=== PATIENT | male | born 1950 | race Caucasian/White ===

== ENCOUNTER → 2017-10-09 06:59 | Outpatient (CLI) | payer OTHER, MEDICAID, SELFPAY ==
[2017-10-09 09:03] LABS: Add Manual Diff / Slide Review NO; Basophils Percent Auto 1.2 % (0-2); Eosinophils Percent Auto 3.4 % (2-4); Hematocrit 38.2 % (41-53); Hemoglobin 13.1 g/dL (13.5-17.5); Lymphocytes Percent Auto 21.3 % (25-40); Mean Corpuscular HGB Conc 34.2 % (30-36); Mean Corpuscular Hemoglobin 31.1 PG (26-34); Mean Corpuscular Volume 90.9 fL (80-100); Monocytes Percent Auto 8.2 % (3-14); Neutrophils Absolute Auto 4900 /uL (3000-5900); Neutrophils Percent Auto 65.9 % (50-75); Platelet Count 349 X10^3/uL (150-400); Red Blood Cell Count 4.21 X10^6/uL (4.5-5.9); Red Cell Distribution Width 13.1 % (11.6-14.8); White Blood Cell Count 7.5 X10^3/uL (4.5-11.0)
[2017-10-09 10:35] LABS: Alanine Aminotransferase 60 IU/L (21-72); Albumin 4.2 g/dL (3.5-5.0); Albumin Globulin Ratio 1.4 (1.0-2.8); Alkaline Phosphatase 86 U/L (38-126); Aspartate Aminotransferase 58 IU/L (17-59); BUN Creatinine Ratio 18.6 (6-22); Bilirubin Total 0.9 mg/dL (0.2-1.3); Blood Urea Nitrogen 13 mg/dL (9-20); Calcium 9.4 mg/dL (8.4-10.2); Carbon Dioxide 32 mmol/L (22-32); Chloride 104 mmol/L (98-107); Cholesterol 142 mg/dL (140-199); Estimated Glomerular Filt Rate > 60.0 mL/min (>60); HDL Cholesterol 46 mg/dL (40-60); HEMOLYSIS < 15 (0-50); LDL Cholesterol Calculated 76 mg/dL (<100); Potassium 4.5 mmol/L (3.4-5.1); Sodium 143 mmol/L (137-145); Total Protein 7.2 g/dL (6.3-8.2); Triglycerides 98 mg/dL (35-150)
[2017-10-09 10:43] LABS: Hemoglobin A1C% w Est Avg Glu 8.6 % (4.0-6.0)
[2017-10-09 11:13] LABS: Glucose 40 mg/dL (80-110)
== END ==
PROVIDERS: PCP Internal Medicine; Visit Provider Internal Medicine
DX: E78.5 Hyperlipidemia, unspecified (principal); E10.9 Type 1 diabetes mellitus without complications
CPT/HCPCS: 36415; 80053; 80061; 83036; 85025

== ENCOUNTER → 2018-02-03 07:03 | Outpatient (CLI) | payer OTHER, SELFPAY ==
[2018-02-03 07:32] LABS: Add Manual Diff / Slide Review NO; Eosinophils Percent Auto 1.3 % (2-4); Hematocrit 36.5 % (41-53); Hemoglobin 12.5 g/dL (13.5-17.5); Lymphocytes Percent Auto 15.8 % (25-40); Mean Corpuscular HGB Conc 34.2 % (30-36); Mean Corpuscular Hemoglobin 32.8 PG (26-34); Neutrophils Absolute Auto 5400 /uL (3000-5900); Neutrophils Percent Auto 74.9 % (50-75); Platelet Count 303 X10^3/uL (150-400); Red Cell Distribution Width 15.6 % (11.6-14.8); White Blood Cell Count 7.2 X10^3/uL (4.5-11.0)
[2018-02-03 07:46] LABS: Hemoglobin A1C% w Est Avg Glu 8.1 % (4.0-6.0)
[2018-02-03 07:47] LABS: Alanine Aminotransferase 61 IU/L (21-72); Albumin 4.1 g/dL (3.5-5.0); Albumin Globulin Ratio 1.5 (1.0-2.8); Alkaline Phosphatase 78 U/L (38-126); Aspartate Aminotransferase 58 IU/L (17-59); BUN Creatinine Ratio 33.3 (6-22); Bilirubin Total 0.6 mg/dL (0.2-1.3); Blood Urea Nitrogen 20 mg/dL (9-20); Calcium 8.9 mg/dL (8.4-10.2); Carbon Dioxide 16 mmol/L (22-32); Chloride 106 mmol/L (98-107); Cholesterol 178 mg/dL (140-199); Estimated Glomerular Filt Rate > 60.0 mL/min (>60); Globulin 2.7 g/dL (1.7-4.1); Glucose 96 mg/dL (80-110); HDL Cholesterol 41 mg/dL (40-60); HEMOLYSIS < 15 (0-50); Potassium 4.2 mmol/L (3.4-5.1); Sodium 141 mmol/L (137-145); Total Protein 6.8 g/dL (6.3-8.2)
[2018-02-03 08:03] LABS: Triglycerides 657 mg/dL (35-150)
== END ==
PROVIDERS: Visit Provider Registered Nurse
DX: E78.5 Hyperlipidemia, unspecified (principal); E10.9 Type 1 diabetes mellitus without complications
CPT/HCPCS: 36415; 80053; 80061; 83036; 85025

== ENCOUNTER → 2018-02-06 09:06 | Outpatient (CLI) | payer OTHER, SELFPAY ==
[2018-02-06 11:27] LABS: HEMOLYSIS < 15 (0-50); Iron 60 ug/dL (49-181)
[2018-02-06 11:37] LABS: Percent Iron Saturation 23 % (20-50); Total Iron Binding Capacity 259 ug/dL (261-462); Transferrin 208 mg/dL (206-381)
[2018-02-06 12:36] LABS: Ferritin 90.3 ng/mL (17.9-464)
[2018-02-06 13:06] LABS: Folate 17.5 ng/mL (2.76-20.0); Vitamin B12 478 pg/mL (239-931)
== END ==
PROVIDERS: PCP Registered Nurse; Visit Provider Registered Nurse
DX: D64.9 Anemia, unspecified (principal)
CPT/HCPCS: 36415; 82607; 82728; 82746; 83540; 83550

== ENCOUNTER → 2018-06-13 07:03 | Outpatient (CLI) | payer OTHER, SELFPAY ==
[2018-06-13 08:22] LABS: Add Manual Diff / Slide Review NO; Basophils Absolute Auto 100 /uL (0-100); Basophils Percent Auto 0.8 % (0-2); Eosinophils Absolute Auto 0 /uL (0-450); Eosinophils Percent Auto 0.5 % (2-4); Hematocrit 35.7 % (41-53); Hemoglobin 11.9 g/dL (13.5-17.5); Lymphocytes Absolute Auto 1500 /uL (1100-4500); Lymphocytes Percent Auto 19.3 % (25-40); Mean Corpuscular HGB Conc 33.3 % (30-36); Mean Corpuscular Hemoglobin 31.9 PG (26-34); Mean Corpuscular Volume 95.9 fL (80-100); Monocytes Absolute Auto 500 /uL (0-900); Monocytes Percent Auto 6.8 % (3-14); Neutrophils Absolute Auto 5800 /uL (1500-7000); Neutrophils Percent Auto 72.6 % (50-75); Platelet Count 380 X10^3/uL (150-400); Red Blood Cell Count 3.72 X10^6/uL (4.5-5.9); Red Cell Distribution Width 13.1 % (11.6-14.8); White Blood Cell Count 7.9 X10^3/uL (4.5-11.0)
[2018-06-13 08:33] LABS: Reticulocyte Count, Percent 1.3 % (0.87-2.60)
[2018-06-13 08:46] LABS: Erythrocyte Sedimentation Rate 24 MM/HR (0-15)
[2018-06-13 08:47] LABS: Hemoglobin A1C% w Est Avg Glu 10.6 % (4.0-6.0)
[2018-06-13 09:10] LABS: Creatinine Urine Random 35.2 mg/dL
[2018-06-13 09:15] LABS: Triglycerides 144 mg/dL (35-150)
[2018-06-13 09:16] LABS: Microalbumin Urine Random 0.6 mg/dL (0-1.6)
[2018-06-13 09:17] LABS: C-Reactive Protein Quant < 0.5 mg/dL (<1.0)
[2018-06-13 09:39] LABS: Prostate Specific Antigen Scrn 0.943 ng/mL (0.1-4.0)
[2018-06-13 09:43] LABS: TSH w/ Reflex to FT4 1.98 uIU/mL (0.47-4.68)
== END ==
PROVIDERS: PCP Student in an Organized Health Care Education/Training Program; Visit Provider Student in an Organized Health Care Education/Training Program
DX: E11.9 Type 2 diabetes mellitus without complications (principal); E78.5 Hyperlipidemia, unspecified; I10 Essential (primary) hypertension; D64.9 Anemia, unspecified; E78.1 Pure hyperglyceridemia; E55.9 Vitamin D deficiency, unspecified; Z12.5 Encounter for screening for malignant neoplasm of prostate
CPT/HCPCS: 36415; 82043; 82306; 82570; 83036; 84443; 84478; 85025; 85045; 85651; 86140; G0103

== ENCOUNTER 2018-07-21 07:03 | Day surgery (SDC) | payer OTHER, SELFPAY ==
[2018-07-21] VITALS (7 sets, daily range): BP systolic 90–117; BP diastolic 42–59; PULSE 53–87; RESP 8–15; TEMP 36.1–36.7; O2SAT 95–99; BMI 20.2
--- NOTE | 2018-07-21 07:34 | PM.HP.1 ---
History of Present Illness Date Patient Seen: 07/21/18 Time Patient Seen: 07:35 Chief complaint: [id number] Narrative: 67yo M for first low risk screening colonoscopy. No family history of CRC or other high risks cancers. No blood in stools, change in stool caliber, abd pain, or unexplained weight loss. He has lost about 40 lbs over the last several months to a year intentionally by cutting out beer and carbs. Patient History Medical History Diabetes mellitus (Chronic 1978) Myasthenia gravis (Chronic 1976) Surgical History Anesthesia (Resolved) History of thymectomy (Resolved 02/01/77) Family History (Updated 10/10/17 @ 11:38 by Susanne Sanders) Father Parkinson's disease Alzheimer's disease Mother No problems noted. Social History Smoking Status: Former smoker alcohol intake: current (one night a week 4 beers) substance use type: marijuana Family & Social History Family History Father Parkinson's disease Alzheimer's disease Mother No problems noted. Tobacco & Substance use: Smoking Status Former smoker alcohol intake current Meds Home Medications Medication Instructions Recorded Confirmed Type Glucose: Test Strips str NA BID #200 04/09/17 06/19/18 Rx Lancets ea NA BID #200 04/15/17 06/19/18 Rx atorvastatin 40 mg tablet 40 mg PO DAILY #90 tab 10/03/17 06/19/18 Rx BD UF short 1/2 cc 31 g See Rx Instructions SUBCUT BID 02/06/18 06/19/18 History amlodipine 10 mg tablet 10 mg PO BEDTIME #90 tab 02/06/18 06/19/18 Rx empagliflozin 25 mg tablet 25 mg PO DAILY #90 tab 02/06/18 06/19/18 Rx metformin 500 mg tablet 1,000 mg PO BID #360 tab 02/06/18 06/19/18 Rx aspirin 81 mg tablet,delayed 81 mg PO DAILY 05/28/18 06/19/18 History release lisinopril 20 mg tablet 20 mg PO DAILY #90 tab 05/28/18 06/19/18 Rx blood sugar diagnostic strips #200 each 06/18/18 06/19/18 Rx glipizide ER 10 mg tablet, 10 mg PO DAILY #30 tab 06/19/18 Rx extended release 24 hr insulin glargine (U-100) 100 15 unit SUBCUT .HS #15 ml 06/19/18 Rx unit/mL (3 mL) subcutaneous pen Allergies Allergy/AdvReac Type Severity Reaction Status Date / Time chlorthalidone AdvReac Mild weakness Verified 06/19/18 15:28 Review of Systems Constitutional Constitutional: Reports as per HPI Exam Narrative Exam Narrative: AAO, NAD, male of healthy weight EOMI, MMM, no scleral icterus unlabored RA soft, nt/nd MAEW visible skin dry and intact Assessment & Plan (1) Screening for colorectal cancer: Current visit: Yes Status: Acute Assessment & Plan narrative: - plan for low risk screening colonoscopy --> all R/B/A discussed and pt wishes to proceed
[2018-07-21] MEDS: fentaNYL 250 MCG/5 ML INJ IV (08:21)
[2018-07-21] MEDS: MIDAZOLAM 5 MG/5 ML VIAL IV (08:21)
--- NOTE | 2018-07-21 09:18 | SUR.PHASEII ---
Pt ready for d/c. Pt assisted to dress by and left unit when ready and in stable condition.
--- NOTE | 2018-07-21 11:17 | PM.OP.1 ---
Operative Date/Time/Diagnoses Date of procedure: 07/21/18 Time of procedure: 08:34 Pre-op diagnosis: screening colonoscopy Post-op diagnosis: same Procedure & Clinicians Procedure: Low risk screening colonoscopy Same procedure as scheduled: Yes Indications: 67yo M for first screening colonoscopy. Surgeon: Arlen Tabler Click Yes if Unassisted: Yes Anesthesia Type: Sedation Operative Notes Findings: no abnormalities Closure Type: not applicable Specimen(s): none sent Procedure in detail: After obtaining informed consent, the patient was brought to the GI suite and placed in the left lateral decubitus position on the examination table. After placement of appropriate monitors, the patient was given incremental doses of Versed and Fentanyl until an appropriate level of sedation was achieved. A time out was held per SCOAP protocol. A digital rectal examination was performed and did not reveal any masses or obstructing lesions. Prostate mildly enlarged. The colonoscope was gently passed into the patient's anus and the entire colon navigated to the level of the cecum with difficulty due to spasm and tortuosity. Prep was adequate. Once in the cecum, the scope was slowly withdrawn being sure to go before and beyond all mucosal folds and prominences as able to get a thorough examination. No masses or polyps are noted. No other abnormalities noted. At the level of the rectal vault, the scope was retroflexed and the internal anal canal was examined. The scope was straightened and air aspirated from the colon. The instrument was removed from the patient's body and the procedure was concluded. The patient was allowed to awaken from sedation without difficulty and taken to the post-anesthesia care unit in good condition. Complications: none Condition: stable Disposition: PACU
== END 2018-07-21 09:17 | disposition home or self-care (01) ==
PROVIDERS: PCP Student in an Organized Health Care Education/Training Program; Visit Provider Surgery
PROC: 0DJD8ZZ Inspection of Lower Intestinal Tract, Via Natural or Artificial Opening Endoscopic (ICD-10-PCS; CPT 45378; principal; 2018-07-21 07:45)
DX: Z12.11 Encounter for screening for malignant neoplasm of colon (principal); E11.9 Type 2 diabetes mellitus without complications; G70.00 Myasthenia gravis without (acute) exacerbation; Z79.4 Long term (current) use of insulin; Z87.891 Personal history of nicotine dependence
CPT/HCPCS: G0121; 99152; 99153; J2250; J3010

== ENCOUNTER → 2018-09-17 07:01 | Outpatient (CLI) | payer OTHER, SELFPAY ==
[2018-09-17 08:59] LABS: Hemoglobin A1C% w Est Avg Glu 9.7 % (4.0-6.0)
== END ==
PROVIDERS: PCP Student in an Organized Health Care Education/Training Program; Visit Provider Student in an Organized Health Care Education/Training Program
DX: E11.9 Type 2 diabetes mellitus without complications (principal)
CPT/HCPCS: 36415; 83036

== ENCOUNTER → 2018-12-18 07:06 | Outpatient (CLI) | payer OTHER, SELFPAY ==
[2018-12-18 08:29] LABS: Hemoglobin A1C% w Est Avg Glu 9.4 % (4.0-6.0)
== END ==
PROVIDERS: PCP Student in an Organized Health Care Education/Training Program; Visit Provider Student in an Organized Health Care Education/Training Program
DX: E11.9 Type 2 diabetes mellitus without complications (principal)
CPT/HCPCS: 36415; 83036

== ENCOUNTER → 2019-01-06 09:37 | Outpatient (CLI) | payer OTHER, SELFPAY ==
--- NOTE | 2019-01-06 11:22 | DIET.PN ---
Diabetes Intake: Initial Assessment Assess: Mr. Navarro is a 68 YOM with long standing HX (40 yrs) of type 2 diabetes. Reports he has never received any formal education. He is monitoring his BG 3-4x/day and recently started taking a new medication since being placed under the care of Dr. Stein. He feels his BG is in better control, but continues to have difficulty with dietary choices. Labs: Per pt report: A1c: 9.4 (12/18) SMB-225 TC: 178 Tri HDL: 41 LDL: TNP Meds: lantus 16u evening; Jardiance 25mg qd; Metformin 500mg BID; Novolog SSI 5u + 2 u q 50mg/dL >100 Diet: per 24 hr recall: Wt: 169lb Ht: 70? BMI: 24.3 DX: Altered nutrition related laboratory values related to impaired glucose metabolism, lack of previous exposure to nutrition information as evidenced by pt report, diagnosis of diabetes, previous diet high in refined carbohydrates. Intervention: 1. Completed intake assessment. Discussed barriers to care. 2. Discussed pathophysiology of diabetes. Reviewed A1c and its correlation to blood glucose numbers. Discussed recommended BG ranges. 3. Discussed importance of self-monitoring, how often, and when to check. 4. Reviewed hyper/hypoglycemia and treatment. 5. Reviewed safe disposal of equipment (strip/lancets/insulin needles). 6. Created SMART goals for pt self-care and success. 7. Discussed program curriculum outline based on available referral hours. SMART Goals: 1. Pt would like to learn better eating habits for controlled BG through carbohydrate counting and measuring serving sizes. 2. Pt would like to lower A1c through keeping track of carbohydrates and effects on SMBG. Monitor/Evaluate: Anticipate excellent compliance. Pt will attend DSME program. Healthy Eating Class 1 scheduled for January 13, 2019.
== END ==
PROVIDERS: PCP Student in an Organized Health Care Education/Training Program; Visit Provider Student in an Organized Health Care Education/Training Program
DX: E11.9 Type 2 diabetes mellitus without complications (principal); Z79.84 Long term (current) use of oral hypoglycemic drugs; Z79.4 Long term (current) use of insulin
CPT/HCPCS: G0108

== ENCOUNTER → 2019-01-13 16:16 | Outpatient (CLI) | payer OTHER, SELFPAY ==
--- NOTE | 2019-01-16 10:49 | DIET.PN ---
Dietary Progress Note Diabetes: Healthy Eating 1 Intervention: ?Discussed pathophysiology of diabetes and impact of nutrition/diet on blood sugar control.? Discussed fed versus non-fed state.?? ?Reviewed importance of Balance, Variety, and Moderation. ?Discussed the effect of carbohydrates/protein/fat on blood sugar control.? ?Stressed importance of consistent carbohydrate intake at each meal and provided instructions for recommended servings/portions of carbohydrates/protein per meal. Provided educational material. ?Reviewed carbohydrate counting and measuring carbohydrate content via serving sizes and reading nutrition labels.? Provided handouts.?? ?Discussed the difference between simple versus complex carbohydrates and the effect of fiber on blood sugar control.? Discussed various methods to increase fiber content in diet. ?Discussed the plate method for creating more carbohydrate conscious balanced meals. ?Stressed importance of meal timing and not going >4-5 hours between meals. Encouraged adding protein to evening snack to support glucose control overnight. ?Discussed importance of making dietary habits part of lifestyle change.
== END ==
PROVIDERS: PCP Student in an Organized Health Care Education/Training Program; Visit Provider Student in an Organized Health Care Education/Training Program
DX: E11.9 Type 2 diabetes mellitus without complications (principal); Z71.3 Dietary counseling and surveillance
CPT/HCPCS: G0109

== ENCOUNTER → 2019-02-20 09:58 | Outpatient (CLI) | payer OTHER, SELFPAY ==
--- NOTE | 2019-02-20 15:16 | DIET.PN ---
Dietary Progress Note Diabetes: Healthy Eating 2 Intervention: Fats effects on glucose, weight, heart disease, cholesterol Sat Vs Unsat Protein- animal and plant based options Low, med, high fat meats Sugar substitutes Sodium Health claims Grocery shopping guidelines Eating away from home Alcohol Sick day guidelines
== END ==
PROVIDERS: PCP Student in an Organized Health Care Education/Training Program; Visit Provider Student in an Organized Health Care Education/Training Program
DX: E11.9 Type 2 diabetes mellitus without complications (principal); Z71.3 Dietary counseling and surveillance
CPT/HCPCS: G0109

== ENCOUNTER → 2019-04-09 11:04 | Outpatient (CLI) | payer OTHER, SELFPAY ==
[2019-04-09 11:30] LABS: Hemoglobin A1C% w Est Avg Glu 8.5 % (4.0-6.0)
[2019-04-09 12:08] LABS: BUN Creatinine Ratio 41.3 (6-22); Blood Urea Nitrogen 33 mg/dL (9-20); Calcium 9.3 mg/dL (8.4-10.2); Carbon Dioxide 23 mmol/L (22-32); Chloride 104 mmol/L (98-107); Estimated Glomerular Filt Rate > 60.0 mL/min (>60); Glucose 229 mg/dL (80-110); HEMOLYSIS < 15 (0-50); Sodium 136 mmol/L (137-145)
[2019-04-09 12:09] LABS: Potassium 5.6 mmol/L (3.4-5.1)
[2019-04-09 15:31] LABS: Creatinine Urine Random 35.7 mg/dL
[2019-04-09 15:42] LABS: Microalbumi Creatinin Ratio Ur 16.8 ug/mg CR (<30); Microalbumin Urine Random < 0.6 mg/dL (0-1.6)
== END ==
PROVIDERS: PCP Student in an Organized Health Care Education/Training Program; Visit Provider Student in an Organized Health Care Education/Training Program
DX: E11.9 Type 2 diabetes mellitus without complications (principal); I10 Essential (primary) hypertension
CPT/HCPCS: 36415; 80048; 82043; 82570; 83036

== ENCOUNTER → 2019-07-13 07:31 | Outpatient (CLI) | payer MEDICARE, SELFPAY ==
[2019-07-13 09:35] LABS: BUN Creatinine Ratio 35.1 (6-22); Blood Urea Nitrogen 27 mg/dL (9-20); Calcium 9.3 mg/dL (8.4-10.2); Carbon Dioxide 23 mmol/L (22-32); Chloride 106 mmol/L (98-107); Estimated Glomerular Filt Rate > 60.0 mL/min (>60); Glucose 233 mg/dL (80-110); HEMOLYSIS < 15 (0-50); Sodium 136 mmol/L (137-145)
[2019-07-13 09:39] LABS: Potassium 5.4 mmol/L (3.4-5.1)
[2019-07-13 09:41] LABS: Hemoglobin A1C% w Est Avg Glu 6.5 % (4.0-6.0)
== END ==
PROVIDERS: PCP Student in an Organized Health Care Education/Training Program; Referring Provider Student in an Organized Health Care Education/Training Program; Visit Provider Student in an Organized Health Care Education/Training Program
DX: E11.9 Type 2 diabetes mellitus without complications (principal); E87.5 Hyperkalemia; I10 Essential (primary) hypertension
CPT/HCPCS: 36415; 80048; 83036

== ENCOUNTER → 2019-08-05 07:58 | Outpatient (CLI) | payer MEDICARE, SELFPAY ==
--- NOTE | 2019-08-05 07:59 | DI.US.S_ITS ---
PROCEDURE: US ABD AORTA ANEURYSM SCREEN INDICATIONS: HX SMOKING TECHNIQUE: Real time scanning was performed of the aorta and iliac arteries, with image documentation. COMPARISON: None. FINDINGS: Aorta: Proximal aortic diameter measures 1.8 cm. Mid-aorta measures 1.2 cm. Distal aortic diameter is 1.2 cm. Iliac arteries: Right common iliac artery measures 1 cm. Left common iliac artery measures 1 cm. IMPRESSION: Negative for aneurysm. Dictated by: Clifford Dia M.D. on 08/05/2019 at 8:33 Approved by: Clifford Dia M.D. on 08/05/2019 at 8:33
== END ==
PROVIDERS: PCP Student in an Organized Health Care Education/Training Program; Referring Provider Student in an Organized Health Care Education/Training Program; Visit Provider Student in an Organized Health Care Education/Training Program
DX: Z13.6 Encounter for screening for cardiovascular disorders (principal); Z87.891 Personal history of nicotine dependence
CPT/HCPCS: 76706

== ENCOUNTER → 2019-08-12 09:20 | Outpatient (CLI) | payer MEDICARE, SELFPAY ==
--- NOTE | 2019-08-12 09:21 | DI.MG.S_ITS ---
MALE BILATERAL DIGITAL DIAGNOSTIC MAMMOGRAM 3D/2D: 08/12/2019 CLINICAL: Baseline. Left breast lump. No prior exams were available for comparison. There is gynecomastia in the left breast that correlates with palpable abnormality. No significant masses, calcifications, or other findings are seen in either breast. IMPRESSION: There is no mammographic evidence of malignancy. This exam was interpreted at Station ID: [id number]. NOTE: For mammograms, a report in lay terms will be sent to the patient. Approximately 15% of breast malignancies will not be visualized mammographically. In the management of a palpable breast mass, a negative mammogram must not discourage biopsy of a clinically suspicious lesion. Electronically Signed By: Ammy Sam M.D. lk/:08/13/2019 08:47:12 letter sent: Clinical Evaluation ACR BI-RADS Category 2: Benign Finding(s) 3342F
== END ==
PROVIDERS: PCP Student in an Organized Health Care Education/Training Program; Referring Provider Student in an Organized Health Care Education/Training Program; Visit Provider Student in an Organized Health Care Education/Training Program
DX: N62 Hypertrophy of breast (principal)
CPT/HCPCS: 77066; G0279

== ENCOUNTER → 2019-08-15 08:30 | Outpatient (CLI) | payer MEDICARE, SELFPAY ==
[2019-08-15 10:30] LABS: HCG Quantitative /Beta subunit < 2.4 mIU/mL (-2.40)
[2019-08-15 10:47] LABS: Testosterone 425 ng/dL (71.8-623)
[2019-08-15 13:43] LABS: Follicle Stimulating Hormone 4.88 mIU/mL; Luteinizing Hormone 4.79 mIU/mL
[2019-08-15 14:32] LABS: Estradiol, Total 23.9 pg/mL
== END ==
PROVIDERS: PCP Student in an Organized Health Care Education/Training Program; Referring Provider Student in an Organized Health Care Education/Training Program; Visit Provider Student in an Organized Health Care Education/Training Program
DX: N63.0 Unspecified lump in unspecified breast (principal)
CPT/HCPCS: 36415; 82670; 83001; 83002; 84403; 84702

== ENCOUNTER → 2019-11-16 07:01 | Outpatient (CLI) | payer MEDICARE, SELFPAY ==
[2019-11-16 08:47] LABS: Hemoglobin A1C% w Est Avg Glu 6.2 % (4.0-6.0)
== END ==
PROVIDERS: PCP Student in an Organized Health Care Education/Training Program; Referring Provider Student in an Organized Health Care Education/Training Program; Visit Provider Student in an Organized Health Care Education/Training Program
DX: E11.9 Type 2 diabetes mellitus without complications (principal)
CPT/HCPCS: 36415; 83036

== ENCOUNTER → 2020-05-27 09:23 | Outpatient (CLI) | payer MEDICARE, SELFPAY ==
[2020-05-27 10:11] LABS: Creatinine Urine Random 32.8 mg/dL
[2020-05-27 10:15] LABS: Microalbumi Creatinin Ratio Ur 45.7 ug/mg CR (<30); Microalbumin Urine Random 1.5 mg/dL (0-1.6)
[2020-05-27 10:23] LABS: Hemoglobin A1C% w Est Avg Glu 6.1 % (4.0-6.0)
== END ==
PROVIDERS: PCP Student in an Organized Health Care Education/Training Program; Referring Provider Student in an Organized Health Care Education/Training Program; Visit Provider Student in an Organized Health Care Education/Training Program
DX: E11.9 Type 2 diabetes mellitus without complications (principal)
CPT/HCPCS: 36415; 82043; 82570; 83036

== ENCOUNTER → 2020-11-07 08:35 | Outpatient (CLI) | payer MEDICARE, SELFPAY ==
[2020-11-07 10:04] LABS: Blood Urea Nitrogen 20 mg/dL (9-20); Calcium 9.3 mg/dL (8.4-10.2); Carbon Dioxide 25 mmol/L (22-32); Chloride 108 mmol/L (98-107); Estimated Glomerular Filt Rate > 60.0 mL/min (>60); Glucose 60 mg/dL (80-110); HEMOLYSIS < 15 (0-50); Potassium 4.8 mmol/L (3.4-5.1); Sodium 139 mmol/L (137-145)
[2020-11-07 11:19] LABS: Creatinine Urine Random 38.6 mg/dL
[2020-11-07 11:23] LABS: Microalbumi Creatinin Ratio Ur 93.2 ug/mg CR (<30); Microalbumin Urine Random 3.6 mg/dL (0-1.6)
== END ==
PROVIDERS: PCP Student in an Organized Health Care Education/Training Program; Referring Provider Student in an Organized Health Care Education/Training Program; Visit Provider Student in an Organized Health Care Education/Training Program
DX: E11.9 Type 2 diabetes mellitus without complications (principal); Z12.5 Encounter for screening for malignant neoplasm of prostate; I10 Essential (primary) hypertension
CPT/HCPCS: 36415; 80048; 82043; 82570; 83036; G0103

== ENCOUNTER → 2021-05-08 09:38 | Outpatient (CLI) | payer MEDICARE, SELFPAY ==
[2021-05-08 10:24] LABS: Hemoglobin A1C% w Est Avg Glu 6.6 % (4.0-6.0)
[2021-05-08 10:46] LABS: BUN Creatinine Ratio 25.7 (6-22); Blood Urea Nitrogen 19 mg/dL (9-20); Creatinine Urine Random 26.2 mg/dL; Estimated Glomerular Filt Rate > 60.0 mL/min (>60)
[2021-05-08 10:52] LABS: Microalbumi Creatinin Ratio Ur 141.2 ug/mg CR (<30); Microalbumin Urine Random 3.7 mg/dL (0-1.6)
== END ==
PROVIDERS: PCP Student in an Organized Health Care Education/Training Program; Referring Provider Student in an Organized Health Care Education/Training Program; Visit Provider Student in an Organized Health Care Education/Training Program
DX: E11.9 Type 2 diabetes mellitus without complications (principal); I10 Essential (primary) hypertension; R80.9 Proteinuria, unspecified
CPT/HCPCS: 36415; 82043; 82565; 82570; 83036; 84520

== ENCOUNTER → 2021-08-23 11:58 | Outpatient (CLI) | payer MEDICARE, SELFPAY ==
[2021-08-23 13:09] LABS: BUN Creatinine Ratio 22.1 (6-22); Blood Urea Nitrogen 17 mg/dL (9-20); Estimated Glomerular Filt Rate > 60 mL/min (>60)
== END ==
PROVIDERS: PCP Student in an Organized Health Care Education/Training Program; Referring Provider Student in an Organized Health Care Education/Training Program; Visit Provider Student in an Organized Health Care Education/Training Program
DX: E11.29 Type 2 diabetes mellitus with other diabetic kidney complication (principal); I10 Essential (primary) hypertension; R80.9 Proteinuria, unspecified; Z79.4 Long term (current) use of insulin
CPT/HCPCS: 36415; 82565; 83036; 84520

== ENCOUNTER → 2022-02-08 08:34 | Outpatient (CLI) | payer MEDICARE, SELFPAY ==
[2022-02-08 10:53] LABS: Cholesterol 136 mg/dL (140-199); HDL Cholesterol 48 mg/dL (40-60); LDL Cholesterol Calculated 55 mg/dL (<100); Triglycerides 165 mg/dL (35-150)
[2022-02-08 11:03] LABS: Creatinine Urine Random 33.9 mg/dL
[2022-02-08 11:04] LABS: Microalbumin Urine Random 1.9 mg/dL (0-1.6)
[2022-02-08 16:48] LABS: Hep C Virus Ab w/Reflex Quant NEGATIVE s/c (NEGATIVE)
== END ==
PROVIDERS: PCP Student in an Organized Health Care Education/Training Program; Referring Provider Student in an Organized Health Care Education/Training Program; Visit Provider Student in an Organized Health Care Education/Training Program
DX: Z11.59 Encounter for screening for other viral diseases (principal); E78.2 Mixed hyperlipidemia; E11.29 Type 2 diabetes mellitus with other diabetic kidney complication; E11.69 Type 2 diabetes mellitus with other specified complication; R80.9 Proteinuria, unspecified; Z79.4 Long term (current) use of insulin
CPT/HCPCS: 36415; 80061; 82043; 82570; 83036; 86803

== ENCOUNTER → 2022-05-09 08:00 | Outpatient (CLI) | payer MEDICARE, SELFPAY ==
[2022-05-09 08:35] LABS: Hemoglobin A1C% w Est Avg Glu 6.9 % (4.0-6.0)
[2022-05-09 08:40] LABS: BUN Creatinine Ratio 26.6 (6-22); Blood Urea Nitrogen 17 mg/dL (9-20); Calcium 8.9 mg/dL (8.4-10.2); Carbon Dioxide 24 mmol/L (22-32); Chloride 104 mmol/L (98-107); Estimated Glomerular Filt Rate > 60 mL/min (>60); Glucose 172 mg/dL (80-110); HEMOLYSIS < 15 (0-50); Potassium 4.8 mmol/L (3.4-5.1); Sodium 140 mmol/L (137-145)
[2022-05-09 09:07] LABS: Prostate Specific Antigen Scrn 1.39 ng/mL (0.1-4.0)
== END ==
PROVIDERS: PCP Student in an Organized Health Care Education/Training Program; Referring Provider Student in an Organized Health Care Education/Training Program; Visit Provider Student in an Organized Health Care Education/Training Program
DX: E11.29 Type 2 diabetes mellitus with other diabetic kidney complication (principal); Z12.5 Encounter for screening for malignant neoplasm of prostate; I10 Essential (primary) hypertension; R80.9 Proteinuria, unspecified; Z79.4 Long term (current) use of insulin
CPT/HCPCS: 36415; 80048; 83036; G0103

== ENCOUNTER → 2022-11-05 08:13 | Outpatient (CLI) | payer MEDICARE, SELFPAY ==
[2022-11-05 09:20] LABS: Creatinine Urine Random 49.4 mg/dL
[2022-11-05 09:26] LABS: Microalbumi Creatinin Ratio Ur 82.9 ug/mg CR (<30); Microalbumin Urine Random 4.1 mg/dL (0-1.6)
[2022-11-05 10:31] LABS: BUN Creatinine Ratio 23.9 (6-22); Blood Urea Nitrogen 17 mg/dL (9-20); Calcium 8.9 mg/dL (8.4-10.2); Carbon Dioxide 23 mmol/L (22-32); Chloride 103 mmol/L (98-107); Estimated Glomerular Filt Rate > 60 mL/min (>60); Glucose 157 mg/dL (80-110); HEMOLYSIS < 15 (0-50); Potassium 5.3 mmol/L (3.4-5.1); Sodium 135 mmol/L (137-145)
[2022-11-06 03:12] LABS: Labcorp Hemoglobin (Hb) A1c 6.6 % (4.8-5.6)
== END ==
PROVIDERS: PCP Student in an Organized Health Care Education/Training Program; Referring Provider Student in an Organized Health Care Education/Training Program; Visit Provider Student in an Organized Health Care Education/Training Program
DX: I10 Essential (primary) hypertension (principal); R80.9 Proteinuria, unspecified; Z79.4 Long term (current) use of insulin; E11.29 Type 2 diabetes mellitus with other diabetic kidney complication
CPT/HCPCS: 36415; 80048; 82043; 82570; 83036

== ENCOUNTER → 2023-03-20 06:59 | Outpatient (CLI) | payer MEDICARE, SELFPAY ==
[2023-03-20 08:32] LABS: Add Manual Diff / Slide Review NO; Basophils Absolute Auto 100 /uL (0-100); Basophils Percent Auto 1.1 % (0-2); Eosinophils Absolute Auto 100 /uL (0-450); Eosinophils Percent Auto 1.8 % (2-4); Hematocrit 36.8 % (41-53); Hemoglobin 12.4 g/dL (13.5-17.5); Lymphocytes Absolute Auto 1700 /uL (1100-4500); Mean Corpuscular HGB Conc 33.6 % (30-36); Mean Corpuscular Hemoglobin 30.1 PG (26-34); Mean Corpuscular Volume 89.6 fL (80-100); Monocytes Absolute Auto 500 /uL (0-900); Monocytes Percent Auto 6.5 % (3-14); Neutrophils Absolute Auto 5200 /uL (1500-7000); Neutrophils Percent Auto 68.6 % (50-75); Platelet Count 289 X10^3/uL (150-400); Red Cell Distribution Width 13.6 % (11.6-14.8); White Blood Cell Count 7.6 X10^3/uL (4.5-11.0)
[2023-03-20 08:39] LABS: Hemoglobin A1C% w Est Avg Glu 6.8 % (4.0-6.0)
[2023-03-20 08:59] LABS: Alanine Aminotransferase 42 IU/L (<50); Albumin 4.3 g/dL (3.5-5.0); Albumin Globulin Ratio 1.4 (1.0-2.8); Alkaline Phosphatase 102 U/L (38-126); Aspartate Aminotransferase 35 IU/L (17-59); BUN Creatinine Ratio 31.1 (6-22); Bilirubin Total 0.9 mg/dL (0.2-1.3); Blood Urea Nitrogen 19 mg/dL (9-20); Calcium 9.6 mg/dL (8.4-10.2); Carbon Dioxide 22 mmol/L (22-32); Chloride 104 mmol/L (98-107); Cholesterol 138 mg/dL (140-199); Estimated Glomerular Filt Rate > 60 mL/min (>60); Glucose 83 mg/dL (80-110); HDL Cholesterol 70 mg/dL (40-60); HEMOLYSIS < 15 (0-50); LDL Cholesterol Calculated 54 mg/dL (<100); Potassium 5.4 mmol/L (3.4-5.1); Sodium 136 mmol/L (137-145); Total Protein 7.3 g/dL (6.3-8.2); Triglycerides 68 mg/dL (35-150)
[2023-03-20 09:22] LABS: Prostate Specific Antigen 1.18 ng/mL (0.10-4.00); TSH w/ Reflex to FT4 2.11 uIU/mL (0.47-4.68)
[2023-03-20 11:01] LABS: Creatinine Urine Random 33.5 mg/dL
[2023-03-20 11:06] LABS: Microalbumi Creatinin Ratio Ur 316.4 ug/mg CR (<30); Microalbumin Urine Random 10.6 mg/dL (0-1.6)
== END ==
PROVIDERS: PCP Student in an Organized Health Care Education/Training Program; Referring Provider Student in an Organized Health Care Education/Training Program; Visit Provider Student in an Organized Health Care Education/Training Program
DX: I10 Essential (primary) hypertension (principal); E11.69 Type 2 diabetes mellitus with other specified complication; E11.29 Type 2 diabetes mellitus with other diabetic kidney complication; R80.9 Proteinuria, unspecified; Z79.4 Long term (current) use of insulin
CPT/HCPCS: 36415; 80053; 80061; 82043; 82570; 83036; 84153; 84443; 85025

== ENCOUNTER → 2023-08-30 07:08 | Outpatient (CLI) | payer MEDICARE, SELFPAY ==
[2023-08-30 08:11] LABS: Add Manual Diff / Slide Review NO; Basophils Absolute Auto 100 /uL (0-100); Eosinophils Absolute Auto 100 /uL (0-450); Eosinophils Percent Auto 1.6 % (2-4); Hematocrit 35.2 % (41-53); Hemoglobin 11.8 g/dL (13.5-17.5); Lymphocytes Absolute Auto 1600 /uL (1100-4500); Lymphocytes Percent Auto 18.4 % (25-40); Mean Corpuscular HGB Conc 33.6 % (30-36); Mean Corpuscular Hemoglobin 30.5 PG (26-34); Mean Corpuscular Volume 90.5 fL (80-100); Monocytes Absolute Auto 500 /uL (0-900); Monocytes Percent Auto 5.5 % (3-14); Neutrophils Absolute Auto 6200 /uL (1500-7000); Neutrophils Percent Auto 73.5 % (50-75); Platelet Count 306 X10^3/uL (150-400); Red Blood Cell Count 3.88 X10^6/uL (4.5-5.9); Red Cell Distribution Width 14.2 % (11.6-14.8); White Blood Cell Count 8.5 X10^3/uL (4.5-11.0)
[2023-08-30 08:13] LABS: Hemoglobin A1C% w Est Avg Glu 6.6 % (4.0-6.0)
[2023-08-30 08:25] LABS: Alanine Aminotransferase 27 IU/L (<50); Albumin 4.1 g/dL (3.5-5.0); Albumin Globulin Ratio 1.6 (1.0-2.8); Alkaline Phosphatase 77 U/L (38-126); Aspartate Aminotransferase 26 IU/L (17-59); BUN Creatinine Ratio 30.8 (6-22); Bilirubin Total 0.8 mg/dL (0.2-1.3); Blood Urea Nitrogen 20 mg/dL (9-20); Carbon Dioxide 25 mmol/L (22-32); Chloride 109 mmol/L (98-107); Estimated Glomerular Filt Rate > 60 mL/min (>60); Globulin 2.6 g/dL (1.7-4.1); Glucose 142 mg/dL (80-110); HEMOLYSIS < 15 (0-50); Potassium 4.8 mmol/L (3.4-5.1); Sodium 137 mmol/L (137-145); Total Protein 6.7 g/dL (6.3-8.2)
== END ==
PROVIDERS: PCP Student in an Organized Health Care Education/Training Program; Referring Provider Student in an Organized Health Care Education/Training Program; Visit Provider Student in an Organized Health Care Education/Training Program
DX: I10 Essential (primary) hypertension (principal); E11.29 Type 2 diabetes mellitus with other diabetic kidney complication; R80.9 Proteinuria, unspecified; Z79.4 Long term (current) use of insulin; Z79.899 Other long term (current) drug therapy
CPT/HCPCS: 36415; 80053; 83036; 85025

== ENCOUNTER → 2024-03-20 08:25 | Outpatient (CLI) | payer MEDICARE, SELFPAY ==
[2024-03-20 09:46] LABS: Creatinine Urine Random 29.48 mg/dL
[2024-03-20 09:48] LABS: Add Manual Diff / Slide Review NO; Basophils Absolute Auto 100 /uL (0-100); Eosinophils Absolute Auto 100 /uL (0-450); Eosinophils Percent Auto 1.3 % (2-4); Hematocrit 36.4 % (41-53); Hemoglobin 12.1 g/dL (13.5-17.5); Lymphocytes Absolute Auto 1400 /uL (1100-4500); Mean Corpuscular HGB Conc 33.1 % (30-36); Mean Corpuscular Hemoglobin 30.7 PG (26-34); Mean Corpuscular Volume 92.7 fL (80-100); Monocytes Absolute Auto 400 /uL (0-900); Monocytes Percent Auto 6.1 % (3-14); Neutrophils Absolute Auto 4700 /uL (1500-7000); Neutrophils Percent Auto 70.6 % (50-75); Platelet Count 303 X10^3/uL (150-400); Red Blood Cell Count 3.93 X10^6/uL (4.5-5.9); Red Cell Distribution Width 13.5 % (11.6-14.8); White Blood Cell Count 6.7 X10^3/uL (4.5-11.0)
[2024-03-20 09:51] LABS: Microalbumin Urine Random 2.5 mg/dL (0-1.6)
[2024-03-20 09:58] LABS: Hemoglobin A1C% w Est Avg Glu 6.1 % (4.0-6.0)
[2024-03-20 10:17] LABS: Alanine Aminotransferase 24 IU/L (<50); Albumin 4.3 g/dL (3.5-5.0); Albumin Globulin Ratio 1.7 (1.0-2.8); Alkaline Phosphatase 80 U/L (38-126); Aspartate Aminotransferase 25 IU/L (17-59); BUN Creatinine Ratio 23.2 (6-22); Bilirubin Total 0.6 mg/dL (0.2-1.3); Blood Urea Nitrogen 19 mg/dL (9-20); Calcium 9.4 mg/dL (8.4-10.2); Carbon Dioxide 23 mmol/L (22-32); Chloride 111 mmol/L (98-107); Cholesterol 121 mg/dL (140-199); Estimated Glomerular Filt Rate > 60 mL/min (>60); Globulin 2.6 g/dL (1.7-4.1); Glucose 62 mg/dL (80-110); HDL Cholesterol 62 mg/dL (40-60); HEMOLYSIS < 15 (0-50); LDL Cholesterol Calculated 44 mg/dL (<100); Potassium 4.7 mmol/L (3.4-5.1); Sodium 141 mmol/L (137-145); Total Protein 6.9 g/dL (6.3-8.2); Triglycerides 73 mg/dL (35-150)
== END ==
LOC: LAB 08:26
PROVIDERS: PCP Student in an Organized Health Care Education/Training Program; Referring Provider Student in an Organized Health Care Education/Training Program; Visit Provider Student in an Organized Health Care Education/Training Program
DX: E11.9 Type 2 diabetes mellitus without complications (principal); I10 Essential (primary) hypertension
CPT/HCPCS: 36415; 80053; 80061; 82043; 82570; 83036; 85025

== ENCOUNTER → 2024-09-03 07:06 | Outpatient (CLI) | payer MEDICARE, SELFPAY ==
[2024-09-03 07:56] LABS: Add Manual Diff / Slide Review NO; Basophils Absolute Auto 100 /uL (0-100); Basophils Percent Auto 0.7 % (0-2); Eosinophils Absolute Auto 200 /uL (0-450); Eosinophils Percent Auto 1.9 % (2-4); Hematocrit 36.1 % (41-53); Hemoglobin 12.2 g/dL (13.5-17.5); Lymphocytes Absolute Auto 1400 /uL (1100-4500); Lymphocytes Percent Auto 15.3 % (25-40); Mean Corpuscular HGB Conc 33.8 % (30-36); Mean Corpuscular Volume 91.6 fL (80-100); Monocytes Absolute Auto 400 /uL (0-900); Monocytes Percent Auto 4.9 % (3-14); Neutrophils Absolute Auto 6900 /uL (1500-7000); Neutrophils Percent Auto 77.2 % (50-75); Platelet Count 284 X10^3/uL (150-400); Red Blood Cell Count 3.94 X10^6/uL (4.5-5.9); Red Cell Distribution Width 13.8 % (11.6-14.8); White Blood Cell Count 8.9 X10^3/uL (4.5-11.0)
[2024-09-03 08:07] LABS: HEMOLYSIS < 15 (0-50); Iron 63 ug/dL (49-181)
[2024-09-03 08:09] LABS: Alanine Aminotransferase 29 IU/L (<50); Albumin 4.3 g/dL (3.5-5.0); Albumin Globulin Ratio 1.7 (1.0-2.8); Alkaline Phosphatase 98 U/L (38-126); Aspartate Aminotransferase 29 IU/L (17-59); Bilirubin Total 0.9 mg/dL (0.2-1.3); Blood Urea Nitrogen 20 mg/dL (9-20); Carbon Dioxide 22 mmol/L (22-32); Chloride 108 mmol/L (98-107); Estimated Glomerular Filt Rate > 60 mL/min (>60); Globulin 2.6 g/dL (1.7-4.1); Glucose 127 mg/dL (70-99); HEMOLYSIS < 15 (0-50); Potassium 5.2 mmol/L (3.4-5.1); Sodium 138 mmol/L (137-145); Total Protein 6.9 g/dL (6.3-8.2)
[2024-09-03 08:10] LABS: Hemoglobin A1C% w Est Avg Glu 6.4 % (4.0-6.0)
[2024-09-03 08:20] LABS: Percent Iron Saturation 22 % (20-50); Total Iron Binding Capacity 287 ug/dL (261-462); Transferrin 226 mg/dL (206-381)
[2024-09-03 08:43] LABS: Ferritin 36 ng/mL (18-464)
== END ==
PROVIDERS: PCP Student in an Organized Health Care Education/Training Program; Referring Provider Student in an Organized Health Care Education/Training Program; Visit Provider Student in an Organized Health Care Education/Training Program
DX: D64.9 Anemia, unspecified (principal); E11.9 Type 2 diabetes mellitus without complications
CPT/HCPCS: 36415; 80053; 82728; 83036; 83540; 83550; 85025

== ENCOUNTER 2024-09-06 08:36 | Emergency (ER) | payer MEDICARE, SELFPAY ==
[2024-09-06 08:41] VITALS: BP 194/84; PULSE 84; O2SAT 98
[2024-09-06 08:43] VITALS: BP 194/84; PULSE 84; RESP 16; TEMP 37.1; O2SAT 98; BMI 23.6
--- NOTE | 2024-09-06 08:49 | ED_ITS ---
HPI - Neck Pain/Injury General Chief Complaint: Neck Pain/Injury Stated Complaint: Neck pain (2 days) Time Seen by Provider: 09/06/24 08:46 Source: patient, RN notes reviewed and old records reviewed Mode of arrival: Ambulatory Limitations: no limitations History of Present Illness HPI Narrative: 73-year-old male history of diabetes on oral medications and insulin, hypertension, dyslipidemia, prior myasthenia gravis treated with thymectomy who presents with complaint of cervical neck pain. Patient states started 2 days ago started little bit more on the left side has since moved to the midline and onto the right. He states it radiates a little bit to his shoulder on each side. Worse with movement particularly rotation but flexion and extension are quite uncomfortable. Patient states he was trying to roll over this morning and it increased his pain quite a bit. He was not had any falls or traumas or injuries. He denies any numbness tingling or weakness of his extremities. No difficulty with learning and development coordinator. No radiation of pain down his arms. No loss of bowel or bladder control. No fevers. No chest pain or shortness of breath. No nausea or vomiting no other GI or urinary symptoms. Tried Tylenol yesterday with minimal improvement. Patient states has had history of neck issues remotely but not recently. Patient is on long and short-acting insulin, metformin, Jardiance, lisinopril, amlodipine, atorvastatin and iron supplement. States only prior surgery was thymectomy for myasthenia gravis. No known drug allergies. No tobacco, no alcohol, no IV drugs does occasionally use THC. Follows with Dr. Coelho for primary care has a follow up appointment in the next week. Related Data Home Medications ?Medication ?Instructions ?Recorded ?Confirmed aspirin 81 mg tablet,delayed 81 mg PO DAILY 05/28/18 1 release Previous Rx's ?Medication ?Instructions ?Recorded BD UF short / cc 31 g #100 ea 04/23/19 Lancets #200 ea 05/15/19 BD Pen Needle Jerica U/F Misc #400 ea 09/25/21 Glucose: Test Strips #200 ea 09/25/21 blood sugar diagnostic (Blood #200 ea 02/08/23 Glucose Test strips) blood-glucose meter #1 ea 02/08/23 blood-glucose sensor (FreeStyle #1 ea 02/20/24 Sadie 3 Sensor device) ferrous sulfate 324 mg (65 mg 324 mg PO DAILY #90 tabs 03/31/24 iron) tablet,delayed release amlodipine 10 mg tablet 10 mg PO DAILY #90 tabs 06/23 atorvastatin 40 mg tablet 40 mg PO ONCE PM #90 tabs blood-glucose sensor (FreeStyle #6 ea 07/02/24 Sadie 2 Plus Sensor device) empagliflozin 10 mg tablet 10 mg PO DAILY #90 tabs 06/23 (Jardiance) losartan 100 mg tablet 100 mg PO DAILY #90 tabs 06/23 Lantus Solostar U-100 Insulin 100 14 unit (0.14 mL) EPPS BCUT QPM 08/04/24 unit/mL (3 mL) subcutaneous pen Diabetes #15 mL (insulin glargine) insulin lispro 100 unit/mL 5 unit (0.05 mL) SUBCUT TID #15 mL 08/04/24 subcutaneous pen (Humalog KwikPen (U-100) Insulin) metformin 500 mg tablet 1,000 mg (2 x 500 mg) PO BID #360 08/05/24 tabs oxycodone 5 mg tablet 5 mg PO Q6H PRN pain #10 tab s 09/06/24 prednisone 10 mg tablets in a dose See Rx Instructions PO .COMPLEX 09/06/24 pack #21 ea Allergies Allergy/AdvReac Type Severity Reaction Status Date / Time chlorthalidone AdvReac Mild weakness Verified 09/06/24 08:48 Review of Systems Review of Systems ROS Unobtainable: All systems reviewed & are unremarkable except as noted in HPI and below Patient History Medical History Type 2 diabetes mellitus Mixed hyperlipidemia due to type 2 diabetes mellitus Benign essential hypertension Myasthenia gravis (1976) Surgical History Anesthesia 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 Social History household members: spouse Smoking Status: Never smoker alcohol intake: current (one night a week 4 beers) substance use type: marijuana eating out: rarely or never Type(s) of exercise: walking, advised to exercise at least 150 min/week (moderate intensity aerobic) and additional Smoking Status: Never smoker Exam Narrative Exam Narrative: GEN: well nourished, well appearing may, alert and oriented x 3, patient appears to be in mild distress. HEENT: Atraumatic, pupils are equal round reactive to light, extraocular movements are intact, nares are clear, there is no conjunctival pallor. Throat is clear without any exudates, erythema, tonsillar enlargement or uvular deviation, no cervical vertebral tenderness, patient has increased pain with rotation particularly to the right over left. Has increased discomfort with extension greater than with flexion. Patient also has muscle tightness particularly in the trapezius bilaterally paraspinals bilaterally. No warmth, erythema no skin changes. HEART: Regular rate and rhythm without murmur, clicks, rubs LUNGS:Lungs clear to auscultation, no wheezes, rales, crackles, chest moves symmetrically ABD:bowel sounds normal, soft, non-tender, no guarding, rebound, rigidity, no masses noted, no hepatosplenomegaly MSCL: Non-tender, no muscle atrophy, muscles strength 5/5 upper and lower extremities, full range of motion, operations lieutenant are equal bilaterally. 2+ radial pulses bilaterally. Normal sensation bilateral upper extremities. NEURO:CN 2-12 intact, sensation normal Initial Vital Signs Initial Vital Signs: Vital Signs Pulse Rate 84 09/06/24 08:41 Blood Pressure 194/84 H 09/06/24 08:41 Pulse Oximetry 98 09/06/24 08:41 Course Orders Ordered: Discontinued Medications Hydrocodone Bitart/Acetaminophen (Hydrocodone/Acet 5/325 Tablet) 2 tab PO NOW ONE Stop: 09/06/24 09:04 Last Admin: 09/06/24 09:08 Dose: 2 tab Documented By: EVERETTE Vital Signs Vital signs: Vital Signs - 8 hr 09/06/24 08:41 09/06/24 08:41 09/06/24 08:43 Temperature 98.8 F Pulse Rate 84 84 Respiratory Rate 16 Blood Pressure 194/84 H 194/84 H Pulse Oximetry 98 98 Oxygen Delivery Method Room Air 09/06/24 09:00 09/06/24 09:10 09/06/24 09:10 Temperature Pulse Rate 77 85 Respiratory Rate Blood Pressure 161/78 H Pulse Oximetry 97 97 Oxygen Delivery Method 09/06/24 09:14 Temperature 98.6 F Pulse Rate 78 Respiratory Rate 16 Blood Pressure 161/78 H Pulse Oximetry 97 Oxygen Delivery Method Room Air MDM - Neck Pain/Injury MDM Narrative Medical decision making narrative: 73-year-old male with complaint of neck pain for the past 2 days reproducible with movement no midline cervical tenderness on exam, patient has not had trauma or red flag changes necessitating emergent imaging. At this time we will proceed with medication for some pain management patient has primary care follow up within the next week discussed signs and symptoms to watch for and return precautions. Discharge Plan Departure Patient Disposition: Home Clinical Impression: Cervical pain (neck) Instructions: DI for Neck Pain Activity Restrictions/Additional Instructions: Follow up at your appointment with your primary care physician. Let them know that you have been having symptoms this week. You can take acetaminophen up to a 1000 mg every 6 hours as needed for pain, if necessary can take ibuprofen up to 600 mg every 6 hours. If inadequate for pain you can take oxycodone 1-2 tablets every 6 hours as needed. This medication can make you sleepy do not drive, perform hazardous activities or make any major decisions while taking it. This medication will make you constipated please take a stool softener once to twice daily until stools are soft and regular. A prescription for steroid is also included if your symptoms are not improving over the next 1-2 days. This medication can worsen your glucose but can be helpful if there is nerve impingement for discomfort. Prescription sent to [facility] in [place]. Please return for fevers, rapidly worsening symptoms, new loss of bowel or bladder control, new weakness, loss of sensation, difficulty with lifting or moving your extremities or hands/wrists/fingers or other new or concerning changes. Prescriptions: New oxycodone 5 mg tablet 5 mg PO Q6H PRN (Reason: pain) Qty: 10 0RF prednisone 10 mg tablets,dose pack See Rx Instructions .ROUTE .COMPLEX Qty: 21 0RF Rx Instructions: 6 tabs p.o. x1 day, then 5 tabs p.o. x1 day, then 4 tablets p.o. x1 day, then 3 tabs p.o. x1 day, then 2 tabs p.o. x1 day, then 1 tab p.o. x1 day No Action ferrous sulfate 324 mg (65 mg iron) tablet,delayed release (DR/EC) 324 mg PO DAILY Qty: 90 3RF (DME) BD UF short 1/2 cc 31 g See Rx Instructions .Route .MEDSUPPLY Qty: 100 3RF Rx Instructions: Use to inject insulin twice daily SUBCUT; (DME) Lancets 0 .Route .MEDSUPPLY Qty: 200 6RF Rx Instructions: As directed (DME) BD Pen Needle Jerica U/F Misc 32g x 4mm Qty: 400 3RF Rx Instructions: For use w/Basaglar Insulin pen daily. (DME) Glucose: Test Strips 0 .Route .MEDSUPPLY Qty: 200 6RF Rx Instructions: As directed check blood sugar 4 times daily (DME) Blood Glucose Test Strip See Dose Instructions .ROUTE .MEDSUPPLY Qty: 200 2RF Dose Instruction: As directed Rx Instructions: up to four times a day as needed (DME) blood-glucose meter Misc See Rx Instructions .Route Qty: 1 0RF Rx Instructions: Use to check BS 4x a day or as directed by PCP (DME) FreeStyle Sadie 3 Sensor Device See Rx Instructions .ROUTE .COMPLEX Qty: 1 0RF Dose Instruction: As directed to be changed every 14 days Rx Instructions: As directed to be changed every 14 days amlodipine 10 mg tablet 10 mg PO DAILY Qty: 90 10RF Jardiance 10 mg tablet 10 mg PO DAILY Qty: 90 10RF losartan 100 mg tablet 100 mg PO DAILY Qty: 90 10RF atorvastatin 40 mg tablet 40 mg PO ONCE PM Qty: 90 10RF (DME) FreeStyle Sadie 2 Plus Sensor Device See Rx Instructions .ROUTE .COMPLEX Qty: 6 10RF Dose Instruction: USE FOR CONTINUOUS BLOOD GLUCOSE TESTING. CHANGE EVERY 15 DAYS *NEW PRESCRIPTION REQUEST* Rx Instructions: USE FOR CONTINUOUS BLOOD GLUCOSE TESTING. CHANGE EVERY 15 DAYS *NEW PRESCRIPTION REQUEST* insulin lispro [Humalog KwikPen Insulin] 100 unit/mL insulin pen 5 unit SUBCUT TID Qty: 15 3RF insulin glargine [Lantus Solostar U-100 Insulin] 100 unit/mL (3 mL) insulin pen 14 unit SUBCUT QPM MDD 14 Units Qty: 15 2RF Rx Instructions: Inject 14 Units daily at bedtime metformin 500 mg tablet 1,000 mg PO BID Qty: 360 1RF aspirin 81 mg tablet,delayed release (DR/EC) 81 mg PO DAILY Referrals: Francia Arizmendi MD [Primary Care Provider, Family Practice] Stand Alone Forms: Patient Portal/API
[2024-09-06 09:00] VITALS: PULSE 77; O2SAT 97
[2024-09-06] MEDS: HYDROCODONE/ACET 5/325 TABLET 2 TAB PO (09:08)
[2024-09-06 09:10] VITALS: BP 161/78; PULSE 85; O2SAT 97
[2024-09-06 09:14] VITALS: BP 161/78; PULSE 78; RESP 16; TEMP 37; O2SAT 97
== END 2024-09-06 09:18 | disposition home or self-care (01) ==
PROVIDERS: Emergency Provider Emergency Medicine; PCP Student in an Organized Health Care Education/Training Program
DX: M54.2 Cervicalgia (principal)
CPT/HCPCS: 99283

== ENCOUNTER → 2024-09-08 08:30 | Outpatient (CLI) | payer MEDICARE, SELFPAY ==
[2024-09-08 09:32] LABS: BUN Creatinine Ratio 38.5 (6-22); Blood Urea Nitrogen 37 mg/dL (9-20); Calcium 8.9 mg/dL (8.4-10.2); Carbon Dioxide 17 mmol/L (22-32); Chloride 103 mmol/L (98-107); Estimated Glomerular Filt Rate > 60 mL/min (>60); Glucose 266 mg/dL (70-99); HEMOLYSIS < 15 (0-50); Sodium 135 mmol/L (137-145)
[2024-09-08 09:33] LABS: Potassium 5.6 mmol/L (3.4-5.1)
--- NOTE | 2024-09-08 10:04 | DI.RAD.S_ITS ---
PROCEDURE: XR CERVICAL SPINE 2V OR 3V INDICATIONS: neck pain TECHNIQUE: Three views of the cervical spine were acquired. COMPARISON: None. FINDINGS: Cervical spine curvature and alignment: Normal. Bones: There are no osseous abnormalities. Disc spaces: Moderate C3-4, severe C4-5 and C5-6 degenerative disc disease appreciated. Severe C2-3 C3-4 moderate C4-5 C5-6 C6-7 degenerative facet disease. Soft tissues: Extremely heavy calcific plaque present the carotid arteries IMPRESSION: Degeneration. Very heavy calcific plaque present in the expected location the carotid arteries. Suggest carotid Doppler exam to evaluate for stenosis Dictated by: Flako Lezama M.D. on 09/09/2024 at 10:25 Approved by: Flako Lezama M.D. on 09/09/2024 at 10:26
== END ==
PROVIDERS: PCP Student in an Organized Health Care Education/Training Program; Referring Provider Student in an Organized Health Care Education/Training Program; Visit Provider Student in an Organized Health Care Education/Training Program
DX: M50.31 Other cervical disc degeneration, high cervical region (principal); M47.812 Spondylosis without myelopathy or radiculopathy, cervical region; I65.29 Occlusion and stenosis of unspecified carotid artery; E87.5 Hyperkalemia
CPT/HCPCS: 36415; 72040; 80048

== ENCOUNTER 2024-09-08 10:56 | Emergency (ER) | payer MEDICARE, SELFPAY ==
--- NOTE | 2024-09-08 11:19 | ED.GENADULT ---
HPI - General Adult General Chief complaint: Recheck/Abnormal Lab/Rx Stated complaint: Sent from PCP elevated Potassium level Time Seen by Provider: 09/08/24 11:14 History of Present Illness HPI narrative: Patient is sent here for primary care office for elevated potassium that was done in the lab today. Patient has had trending upward potassium in the last series of blood work. Patient is diabetic. at bedside. Patient recently seen here for neck pain and was prescribed steroids which has caused increase in his glucose levels. Patient denies any symptoms. No palpitations no weakness no nausea or vomiting. Related Data Home Medications ?Medication ?Instructions ?Recorded ?Confirmed aspirin 81 mg tablet,delayed 81 mg PO DAILY 05/28/18 09/08/24 release Previous Rx's ?Medication ?Instructions ?Recorded BD UF short 1/2 cc 31 g #100 ea 04/23/19 Lancets #200 ea 05/15/19 BD Pen Needle Jerica U/F Misc #400 ea 09/25/21 Glucose: Test Strips #200 ea 09/25/21 blood sugar diagnostic (Blood #200 ea 02/08/23 Glucose Test strips) blood-glucose meter #1 ea 02/08/23 blood-glucose sensor (FreeStyle #1 ea 02/20/24 Sadie 3 Sensor device) ferrous sulfate 324 mg (65 mg 324 mg PO DAILY #90 tabs 03/31/24 iron) tablet,delayed release amlodipine 10 mg tablet 10 mg PO DAILY #90 tabs 07/02/24 atorvastatin 40 mg tablet 40 mg PO ONCE PM #90 tabs 07/02/24 blood-glucose sensor (FreeStyle #6 ea 07/02/24 Sadie 2 Plus Sensor device) empagliflozin 10 mg tablet 10 mg PO DAILY #90 tabs 07/02/24 (Jardiance) losartan 100 mg tablet 100 mg PO DAILY #90 tabs 07/02/24 Lantus Solostar U-100 Insulin 100 14 unit (0.14 mL) SUBCUT QPM 08/04/24 unit/mL (3 mL) subcutaneous pen Diabetes #15 mL (insulin glargine) insulin lispro 100 unit/mL 5 unit (0.05 mL) SUBCUT TID #15 mL 08/04/24 subcutaneous pen (Humalog KwikPen (U-100) Insulin) metformin 500 mg tablet 1,000 mg (2 x 500 mg) PO BID #360 08/05/24 tabs oxycodone 5 mg tablet 5 mg PO Q6H PRN pain #10 tabs 09/06/24 prednisone 10 mg tablets in a dose See Rx Instructions PO .COMPLEX 09/06/24 pack #21 ea Allergies Allergy/AdvReac Type Severity Reaction Status Date / Time chlorthalidone AdvReac Mild weakness Verified 09/08/24 07:58 Review of Systems Review of Systems Narrative: GENERAL: Negative chills, fatigue, malaise, fever, sweats. HEENT: Negative sinus pain, ear pain, sore throat RESPIRATORY: Negative dyspnea, cough CARDIOVASCULAR: Negative chest pain, palpitations GASTROINTESTINAL: Negative vomiting, nausea, abdominal pain : Negative dysuria, frequency, hematuria MUSCULOSKELETAL: Negative muscle or bony pain SKIN: Negative rash, skin lesions NEUROLOGIC: Negative weakness, numbness ROS Unobtainable: All systems reviewed & are unremarkable except as noted in HPI and below Patient History Medical History Type 2 diabetes mellitus Mixed hyperlipidemia due to type 2 diabetes mellitus Benign essential hypertension Myasthenia gravis (1976) Surgical History Anesthesia 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 Social History household members: spouse Smoking Status: Never smoker alcohol intake: current (one night a week 4 beers) substance use type: marijuana eating out: rarely or never Type(s) of exercise: walking, advised to exercise at least 150 min/week (moderate intensity aerobic) and additional Exam Narrative Exam Narrative: GENERAL: in no distress, not toxic not dyspneic HEAD: Normocephalic. EYES: Pupils equal round ENT: Mucous membranes moist. NECK: Trachea midline. CARDIOVASCULAR: Regular rate and rhythm RESPIRATORY: Clear to auscultation. Breath sounds equal bilaterally. No wheezes, rales, or rhonchi. GASTROINTESTINAL: Abdomen soft, non-tender EXTREMITIES: No gross deformities. BACK: No flank tenderness. NEURO: AOx4. Clear speech SKIN: Warm and dry PSYCH: Not anxious, is cooperative Initial Vital Signs Initial Vital Signs: Vital Signs Pulse Rate 79 09/08/24 11:23 Respiratory Rate 2 L 09/08/24 11:23 Pulse Oximetry 95 09/08/24 11:23 Course Orders Ordered: Discontinued Medications Sodium Chloride (Normal Saline 0.9%) 1,000 mls @ 1,000 mls/hr IV BOLUS ONE Stop: 09/08/24 12:16 Last Infusion: 09/08/24 12:05 Dose: Infused Documented By: Admin: 09/08/24 11:35 Dose: 1,000 mls/hr Documented By: AGATA Insulin Human Regular (Insulin Regular 100 Unit/Ml 3 Ml Vial) 5 unit IV NOW ONE Stop: 09/08/24 11:33 Last Admin: 09/08/24 11:53 Dose: 5 unit Documented By: AGATA Co-signed By: FATOUMATA Vital Signs Vital signs: Vital Signs - 8 hr 09/08/24 11:23 09/08/24 11:26 09/08/24 11:30 Pulse Rate 79 83 Respiratory Rate 2 L 16 Blood Pressure 134/60 128/62 Pulse Oximetry 95 97 Oxygen Delivery Method Room Air 09/08/24 11:30 09/08/24 12:00 09/08/24 12:00 Pulse Rate 82 80 Respiratory Rate 19 20 Blood Pressure 126/62 Pulse Oximetry 95 94 Oxygen Delivery Method Room Air Medical Decision Making Lab Data 09/08/24 11:24 09/08/24 12:16 Labs: Lab Results 09/08/24 09/08/24 Range/Units 11:24 12:16 WBC 15.2 H (4.5-11.0) X10^3/uL RBC 3.50 L (4.5-5.9) X10^6/uL Hgb 10.8 L (13.5-17.5) g/dL Hct 31.8 L (41-53) % MCV 90.9 (80-100) fL MCH 30.9 (26-34) PG MCHC 34.0 (30-36) % RDW 13.7 (11.6-14.8) % Plt Count 267 (150-400) X10^3/uL Neut % (Auto) 93.0 H (50-75) % Lymph % (Auto) 4.4 L (25-40) % [place] % (Auto) 2.3 L (3-14) % Eos % (Auto) 0.0 L (2-4) % Baso % (Auto) 0.3 (0-2) % Neut # (Auto) 15298 H (0840-2800) /uL Lymph # (Auto) 700 L (3991-8942) /uL [place] # (Auto) 400 (0-900) /uL Eos # (Auto) 0 (0-450) /uL Baso # (Auto) 0 (0-100) /uL Sodium 136 L 138 (137-145) mmol/L Potassium 5.5 H 4.4 (3.4-5.1) mmol/L Chloride 105 109 H (98-107) mmol/L Carbon Dioxide 23 21 L (22-32) mmol/L BUN 43 H 43 H (9-20) mg/dL Creatinine 1.16 1.08 (0.66-1.25) mg/dL Estimated GFR > 60 > 60 (>60) mL/min BUN/Creatinine Ratio 37.1 H 39.8 H (6-22) Glucose 257 H 193 H (70-99) mg/dL Calcium 8.9 8.2 L (8.4-10.2) mg/dL Magnesium 2.2 (1.6-2.3) mg/dL Total Bilirubin 0.7 (0.2-1.3) mg/dL AST 23 (17-59) IU/L ALT 25 (<50) IU/L Alkaline Phosphatase 81 (38-126) U/L Total Protein 6.7 (6.3-8.2) g/dL Albumin 4.0 (3.5-5.0) g/dL Globulin 2.7 (1.7-4.1) g/dL Albumin/Globulin Ratio 1.5 (1.0-2.8) Ketones 0.32 H (<0.27) mmol/L Point of Care Testing Glucose POC 163 Point of care testing: Point of Care Testing Glucose POC 163 [facility] Narrative Medical decision making narrative: Patient is sent here for primary care office for elevated potassium that was done in the lab today. Patient has had trending upward potassium in the last series of blood work. Patient is diabetic. at bedside. Patient recently seen here for neck pain and was prescribed steroids which has caused increase in his glucose levels. Patient denies any symptoms. No palpitations no weakness no nausea or vomiting. After history and exam, CBC CMP magnesium EKG normal saline insulin 5 units, serum ketones [facility] Medical records reviewed: ER visit September 06 and office visit today with primary care, laboratory studies done this morning with primary care Differential considered: Includes but not limited to steroid induced hypokalemia, acute renal failure Pertinent findings Lab Test results independently reviewed as above: WBC 15.2, CMP sodium 136 potassium 5.5 BUN 43 GFR greater than 60 glucose 257, repeat BMP for electrolytes after IV fluids sodium 130 potassium 4.4 glucose 193 positive ketones in the serum. Mildly elevated . Serum ketone 0.32 Independently reviewed EKG normal sinus rhythm normal EKG rate 86, no peaked T-waves Consultations: Re-evaluations: 1:06 p.m.. Updated patient results. Patient responded very well with insulin and normal saline here. They state they will stop taking the steroid that was prescribed earlier this week. Reviewed with him this is likely the source of laboratory abnormalities. This should resume to be normal with metabolism of the steroids. They will call primary care this week for follow up. Return precautions reviewed they desire discharge home. Discussion: Appropriate for discharge home. Exam is reassuring. Patient's laboratory study abnormalities likely due to recent steroid use. Causing leukocytosis and hypokalemia/high sugars. This was easily corrected with IV fluids and insulin. Return precautions reviewed. They desire discharge home. Diagnosis: Hyperkalemia, steroid induced leukocytosis and hyperkalemia/high glucose Discharge Plan Departure Patient Disposition: Home Clinical Impression: Steroid-induced hyperglycemia, Acute hyperkalemia Instructions: DI for Hyperkalemia Activity Restrictions/Additional Instructions: Please discontinue any steroid use. This causes elevation in your glucose and potassium. Your exam and laboratory studies are reassuring, IV fluids and insulin has helped correct the abnormal laboratory findings. Keep well hydrated. Return if worse if any questions or concerns Prescriptions: No Action ferrous sulfate 324 mg (65 mg iron) tablet,delayed release (DR/EC) 324 mg PO DAILY Qty: 90 3RF (DME) BD UF short 1/2 cc 31 g See Rx Instructions .Route .MEDSUPPLY Qty: 100 3RF Rx Instructions: Use to inject insulin twice daily SUBCUT; (DME) Lancets 0 .Route .MEDSUPPLY Qty: 200 6RF Rx Instructions: As directed (DME) BD Pen Needle Jerica U/F Misc 32g x 4mm Qty: 400 3RF Rx Instructions: For use w/Basaglar Insulin pen daily. (DME) Glucose: Test Strips 0 .Route .MEDSUPPLY Qty: 200 6RF Rx Instructions: As directed check blood sugar 4 times daily (DME) Blood Glucose Test Strip See Dose Instructions .ROUTE .MEDSUPPLY Qty: 200 2RF Dose Instruction: As directed Rx Instructions: up to four times a day as needed (DME) blood-glucose meter Misc See Rx Instructions .Route Qty: 1 0RF Rx Instructions: Use to check BS 4x a day or as directed by PCP (DME) FreeStyle Sadie 3 Sensor Device See Rx Instructions .ROUTE .COMPLEX Qty: 1 0RF Dose Instruction: As directed to be changed every 14 days Rx Instructions: As directed to be changed every 14 days amlodipine 10 mg tablet 10 mg PO DAILY Qty: 90 10RF Jardiance 10 mg tablet 10 mg PO DAILY Qty: 90 10RF losartan 100 mg tablet 100 mg PO DAILY Qty: 90 10RF atorvastatin 40 mg tablet 40 mg PO ONCE PM Qty: 90 10RF (DME) FreeStyle Sadie 2 Plus Sensor Device See Rx Instructions .ROUTE .COMPLEX Qty: 6 10RF Dose Instruction: USE FOR CONTINUOUS BLOOD GLUCOSE TESTING. CHANGE EVERY 15 DAYS *NEW PRESCRIPTION REQUEST* Rx Instructions: USE FOR CONTINUOUS BLOOD GLUCOSE TESTING. CHANGE EVERY 15 DAYS *NEW PRESCRIPTION REQUEST* insulin lispro [Humalog KwikPen Insulin] 100 unit/mL insulin pen 5 unit SUBCUT TID Qty: 15 3RF insulin glargine [Lantus Solostar U-100 Insulin] 100 unit/mL (3 mL) insulin pen 14 unit SUBCUT QPM MDD 14 Units Qty: 15 2RF Rx Instructions: Inject 14 Units daily at bedtime metformin 500 mg tablet 1,000 mg PO BID Qty: 360 1RF aspirin 81 mg tablet,delayed release (DR/EC) 81 mg PO DAILY oxycodone 5 mg tablet 5 mg PO Q6H PRN (Reason: pain) Qty: 10 0RF prednisone 10 mg tablets,dose pack See Rx Instructions .ROUTE .COMPLEX Qty: 21 0RF Rx Instructions: 6 tabs p.o. x1 day, then 5 tabs p.o. x1 day, then 4 tablets p.o. x1 day, then 3 tabs p.o. x1 day, then 2 tabs p.o. x1 day, then 1 tab p.o. x1 day Referrals: Francia Arizmendi MD [Primary Care Provider, [facility]] Stand Alone Forms: Patient Portal/API
[2024-09-08 11:23] VITALS: PULSE 79; RESP 2; O2SAT 95
[2024-09-08 11:26] VITALS: BP 134/60; PULSE 83; RESP 16; O2SAT 97; BMI 23.6
[2024-09-08 11:30] VITALS: BP 128/62; PULSE 82; RESP 19; O2SAT 95
--- NOTE | 2024-09-08 11:33 | EKG_ITS ---
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
[2024-09-08 11:34] LABS: Add Manual Diff / Slide Review NO; Basophils Absolute Auto 0 /uL (0-100); Basophils Percent Auto 0.3 % (0-2); Eosinophils Absolute Auto 0 /uL (0-450); Hematocrit 31.8 % (41-53); Hemoglobin 10.8 g/dL (13.5-17.5); Lymphocytes Absolute Auto 700 /uL (1100-4500); Lymphocytes Percent Auto 4.4 % (25-40); Mean Corpuscular Hemoglobin 30.9 PG (26-34); Mean Corpuscular Volume 90.9 fL (80-100); Monocytes Absolute Auto 400 /uL (0-900); Monocytes Percent Auto 2.3 % (3-14); Neutrophils Absolute Auto 14100 /uL (1500-7000); Platelet Count 267 X10^3/uL (150-400); Red Cell Distribution Width 13.7 % (11.6-14.8); White Blood Cell Count 15.2 X10^3/uL (4.5-11.0)
[2024-09-08] MEDS: SODIUM CHLORIDE 0.9% 1,000 ML 1000 ML IV (11:35)
[2024-09-08 11:50] LABS: Alanine Aminotransferase 25 IU/L (<50); Albumin Globulin Ratio 1.5 (1.0-2.8); Alkaline Phosphatase 81 U/L (38-126); Aspartate Aminotransferase 23 IU/L (17-59); BUN Creatinine Ratio 37.1 (6-22); Bilirubin Total 0.7 mg/dL (0.2-1.3); Blood Urea Nitrogen 43 mg/dL (9-20); Calcium 8.9 mg/dL (8.4-10.2); Carbon Dioxide 23 mmol/L (22-32); Chloride 105 mmol/L (98-107); Estimated Glomerular Filt Rate > 60 mL/min (>60); Globulin 2.7 g/dL (1.7-4.1); Glucose 257 mg/dL (70-99); HEMOLYSIS < 15 (0-50); Magnesium 2.2 mg/dL (1.6-2.3); Sodium 136 mmol/L (137-145); Total Protein 6.7 g/dL (6.3-8.2)
[2024-09-08 11:53] LABS: Potassium 5.5 mmol/L (3.4-5.1)
[2024-09-08] MEDS: INSULIN REGULAR 100 UNIT/ML 3 ML VIAL IV (11:53)
[2024-09-08 11:57] LABS: Ketones (Beta-Hydroxybutyrate) 0.32 mmol/L (<0.27)
[2024-09-08 12:00] VITALS: BP 126/62; PULSE 80; RESP 20; O2SAT 94
[2024-09-08 12:30] VITALS: BP 126/58; PULSE 84; RESP 18; O2SAT 95
[2024-09-08 12:41] LABS: BUN Creatinine Ratio 39.8 (6-22); Blood Urea Nitrogen 43 mg/dL (9-20); Calcium 8.2 mg/dL (8.4-10.2); Carbon Dioxide 21 mmol/L (22-32); Chloride 109 mmol/L (98-107); Estimated Glomerular Filt Rate > 60 mL/min (>60); Glucose 193 mg/dL (70-99); HEMOLYSIS < 15 (0-50); Potassium 4.4 mmol/L (3.4-5.1); Sodium 138 mmol/L (137-145)
[2024-09-08 13:00] VITALS: BP 127/60; PULSE 78; RESP 16; O2SAT 95
== END 2024-09-08 13:20 | disposition home or self-care (01) ==
PROVIDERS: Emergency Provider Emergency Medicine; PCP Student in an Organized Health Care Education/Training Program
DX: E87.5 Hyperkalemia (principal); E11.65 Type 2 diabetes mellitus with hyperglycemia
CPT/HCPCS: 36415; 72040; 80048; 80053; 82009; 82962; 83735; 85025; 93005; 96374; 99284

== ENCOUNTER 2024-10-26 10:57 | Emergency (ER) | payer MEDICARE, SELFPAY ==
[2024-10-26] VITALS (15 sets, daily range): BP systolic 176–218; BP diastolic 80–101; PULSE 75–105; RESP 16–24; TEMP 36.8; O2SAT 95–99; BMI 25.8
--- NOTE | 2024-10-26 11:18 | DI.RAD.S_ITS ---
PROCEDURE: XR CHEST 1V INDICATIONS: Chest Pain TECHNIQUE: One view of the chest was acquired. COMPARISON: None. FINDINGS: Surgical changes and devices: None. Lungs and pleura: Lungs are clear. No pleural effusions or pneumothorax. Mediastinum: Mediastinal contours appear normal. Heart size is normal. Bones and chest wall: No suspicious bony lesions. Overlying soft tissues appear unremarkable. IMPRESSION: No acute cardiopulmonary pathology. Dictated by: Pj Godfrey M.D. on 10/26/2024 at 11:45 Approved by: Pj Godfrey M.D. on 10/26/2024 at 11:46
--- NOTE | 2024-10-26 11:25 | EKG_ITS ---
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
[2024-10-26 11:43] LABS: Add Manual Diff / Slide Review NO; Hematocrit 35.6 % (41-53); Hemoglobin 12.1 g/dL (13.5-17.5); Lymphocytes Absolute Auto 1500 /uL (1100-4500); Mean Corpuscular HGB Conc 33.9 % (30-36); Mean Corpuscular Hemoglobin 30.5 PG (26-34); Mean Corpuscular Volume 89.7 fL (80-100); Platelet Count 280 X10^3/uL (150-400)
--- NOTE | 2024-10-26 11:56 | PC.NURSE ---
pt's dexcom alarmed saying pt's blood sugar 69, POCT BG showed 74. Pt ok to have juice, geri crackers, and peanut butter by provider. Pt eating at this time.
[2024-10-26 11:58] LABS: INR 0.9 (0.9-1.3); Prothrombin Time 10.7 SECONDS (9.4-12.5)
[2024-10-26 12:00] LABS: PTT Partial Thromboplastin Tim 34 SECONDS (25.1-36.5)
[2024-10-26 12:02] LABS: Alanine Aminotransferase 36 IU/L (<50); Albumin 3.7 g/dL (3.5-5.0); Albumin Globulin Ratio 1.2 (1.0-2.8); Alkaline Phosphatase 115 U/L (38-126); Blood Urea Nitrogen 25 mg/dL (9-20); Calcium 8.3 mg/dL (8.4-10.2); Carbon Dioxide 16 mmol/L (22-32); Chloride 114 mmol/L (98-107); Creatine Kinase 112 U/L (55-170); Estimated Glomerular Filt Rate > 60 mL/min (>60); Globulin 3.1 g/dL (1.7-4.1); Glucose 84 mg/dL (70-99); HEMOLYSIS < 15 (0-50); Lipase 353 U/L (23-300); Magnesium 2.5 mg/dL (1.6-2.3); Potassium 4.7 mmol/L (3.4-5.1); Sodium 138 mmol/L (137-145); Total Protein 6.8 g/dL (6.3-8.2)
[2024-10-26 12:13] LABS: NT-proBNP (BNP-Adult 18+) 839 pg/mL (<125); Troponin I < 0.012 ng/mL (0.01-0.034)
--- NOTE | 2024-10-26 12:48 | ED.EXTPRO ---
HPI - Extremity Problem General Chief complaint: Extremity Problem,Nontraumatic Stated complaint: sent by Adelina for US Time Seen by Provider: 10/26/24 11:27 Source: patient Mode of arrival: Ambulatory History of Present Illness HPI Narrative: 73-year-old male with sudden lower extremity edema in the past 3 -4 days. Patient also having some shortness of breath even at rest and more on exertion and lying flat. Patient has no history of congestive heart failure or coronary artery disease but does have a history of diabetes. Patient was brought in by his PCP for this sudden pitting edema. Related Data Previous Rx's ?Medication ?Instructions ?Recorded BD UF short / cc 31 g #100 ea 04/23/19 Lancets #200 ea 05/15/19 BD Pen Needle Jerica U/F Misc #400 ea 09/25/21 Glucose: Test Strips #200 ea 09/25/21 blood sugar diagnostic (Blood #200 ea 02/08/23 Glucose Test strips) blood-glucose meter #1 ea 02/08/23 blood-glucose sensor (FreeStyle #1 ea 02/20/24 Asdie 3 Sensor device) ferrous sulfate 324 mg (65 mg 324 mg PO DAILY #90 tabs 03/31/24 iron) tablet,delayed release amlodipine 10 mg tablet 10 mg PO DAILY #90 tabs 07/02/24 atorvastatin 40 mg tablet 40 mg PO ONCE PM #90 tabs 07/02/24 blood-glucose sensor (FreeStyle #6 ea 07/02/24 Sadie 2 Plus Sensor device) empagliflozin 10 mg tablet 10 mg PO DAILY #90 tabs 07/02/24 (Jardiance) losartan 100 mg tablet 100 mg PO DAILY #90 tabs 07/02/24 Lantus Solostar U-100 Insulin 100 14 unit (0.14 mL) SUBCUT QPM 08/04/24 unit/mL (3 mL) subcutaneous pen Diabetes #15 mL (insulin glargine) insulin lispro 100 unit/mL 5 unit (0.05 mL) SUBCUT TID #15 mL 08/04/24 subcutaneous pen (Humalog KwikPen (U-100) Insulin) metformin 500 mg tablet 1,000 mg (2 x 500 mg) PO BID #360 08/05/24 tabs furosemide 40 mg tablet 40 mg PO DAILY #14 tabs 10/26/24 Allergies Allergy/AdvReac Type Severity Reaction Status Date / Time chlorthalidone AdvReac Mild weakness Verified 10/26/24 11:11 Review of Systems Review of Systems ROS Unobtainable: All systems reviewed & are unremarkable except as noted in HPI and below Patient History Medical History (Updated 10/26/24 @ 17:04 by Everett Nolasco MD) Cervical spondylosis Abnormal finding on imaging Type 2 diabetes mellitus Mixed hyperlipidemia due to type 2 diabetes mellitus Benign essential hypertension Myasthenia gravis (1976) Surgical History Anesthesia 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 Social History household members: spouse Smoking Status: Former smoker alcohol intake: current (one night a week 4 beers) substance use type: marijuana eating out: rarely or never Type(s) of exercise: walking, advised to exercise at least 150 min/week (moderate intensity aerobic) and additional Smoking Status: Former smoker Exam Narrative Exam Narrative: General: Patient appears to be in no acute distress, acting appropriately Head: normocephalic, atraumatic, HEENT: Pupils equal round reactive, eyes tracking well, neck supple, no JVD Heart: regular rate and rhythm, no murmurs, rubs, or gallops heard ext: 2+ pitting edema bilaterally Lungs: clear to auscultation, no adventitious sounds Abdomen: soft , nontender, nondistended, positive bowel sounds Neurological: no focal neurological signs, moving all extremities well, alert and oriented x3, Psych: good judgment ,good insight, mood is normal. Initial Vital Signs Initial Vital Signs: Vital Signs Temperature 98.2 F 10/26/24 11:11 Pulse Rate 85 10/26/24 11:11 Respiratory Rate 17 10/26/24 11:11 Blood Pressure 179/84 H 10/26/24 11:11 Pulse Oximetry 99 10/26/24 11:11 Oxygen Delivery Method Room Air 10/26/24 11:11 Course Course Course Narrative: Asymptomatic after 20 mg IV Lasix. Orders Ordered: ED Orders 10/26/24 11:18 XR chest 1V Stat EKG-12 Lead Stat 10/26/24 11:34 Complete Blood Count AUTO DIFF Stat Comprehensive Metabolic Panel Stat Lipase Stat Magnesium Stat NT-proBNP (BNP-Adult 18+) Stat PTT Partial Thromboplastin Wes Stat Prothrombin Time INR Stat Troponin & CK Cardiac Panel Stat 10/26/24 13:23 EC echo doppler complete Stat 10/26/24 13:34 EKG-12 Lead Stat 10/26/24 13:37 Trop I [Troponin I] Stat Discontinued Medications Aspirin (Aspirin 81 Mg Chew Tab) 324 mg PO NOW ONE Stop: 10/26/24 11:19 Last Admin: 10/26/24 11:28 Dose: Not Given Documented By: EVERETTE Furosemide (Furosemide 40 Mg/4 Ml Vial) 20 mg IV NOW ONE Stop: 10/26/24 12:57 Last Admin: 10/26/24 13:24 Dose: 20 mg Documented By: ROCKY Reevaluation(s) Reevaluation #1: After Lasix 20 mg IV x1, patient much improved. Patient no longer having any shortness of breath. Vital Signs Vital signs: Vital Signs - 8 hr 10/26/24 11:11 10/26/24 11:28 10/26/24 11:30 Temperature 98.2 F Pulse Rate 85 90 88 Respiratory Rate 17 Blood Pressure 179/84 H Pulse Oximetry 99 96 97 Oxygen Delivery Method Room Air 10/26/24 11:35 10/26/24 11:35 10/26/24 12:00 Temperature Pulse Rate 90 Respiratory Rate 24 Blood Pressure 186/86 H 190/89 H Pulse Oximetry 97 Oxygen Delivery Method 10/26/24 12:00 10/26/24 12:30 10/26/24 12:30 Temperature Pulse Rate 87 85 Respiratory Rate 16 17 Blood Pressure 178/88 H Pulse Oximetry 96 95 Oxygen Delivery Method 10/26/24 13:00 10/26/24 13:00 10/26/24 13:30 Temperature Pulse Rate 87 Respiratory Rate 17 Blood Pressure 183/90 H 195/92 H Pulse Oximetry 97 Oxygen Delivery Method 10/26/24 13:30 10/26/24 14:00 10/26/24 14:00 Temperature Pulse Rate 83 84 Respiratory Rate 19 17 Blood Pressure 191/89 H Pulse Oximetry 95 96 Oxygen Delivery Method 10/26/24 14:28 10/26/24 14:28 10/26/24 14:30 Temperature Pulse Rate 105 H Respiratory Rate 24 Blood Pressure 218/101 H 199/98 H Pulse Oximetry 97 Oxygen Delivery Method 10/26/24 14:30 10/26/24 15:00 10/26/24 15:00 Temperature Pulse Rate 94 H 89 Respiratory Rate 17 17 Blood Pressure 187/90 H Pulse Oximetry 96 95 Oxygen Delivery Method 10/26/24 15:30 10/26/24 15:30 10/26/24 16:00 Temperature Pulse Rate 95 H 96 H Respiratory Rate 17 23 Blood Pressure 176/80 H Pulse Oximetry 97 95 Oxygen Delivery Method MDM - Extremity (Nontraumatic) Differential Diagnosis Differential diagnosis: Likely lower extremity edema and other (congestive heart failure, pulmonary edema ) Lab Data 10/26/24 11:34 10/26/24 11:34 Labs: Lab Results 10/26/24 10/26/24 10/26/24 Range/Units 11:34 11:50 13:37 WBC 10.4 (4.5-11.0) X10^3/uL RBC 3.97 L (4.5-5.9) X10^6/uL Hgb 12.1 L (13.5-17.5) g/dL Hct 35.6 L (41-53) % MCV 89.7 (80-100) fL MCH 30.5 (26-34) PG MCHC 33.9 (30-36) % RDW 14.6 (11.6-14.8) % Plt Count 280 (150-400) X10^3/uL Neut % (Auto) 77.9 H (50-75) % Lymph % (Auto) 14.2 L (25-40) % [place] % (Auto) 6.2 (3-14) % Eos % (Auto) 0.9 L (2-4) % Baso % (Auto) 0.8 (0-2) % Neut # (Auto) 8100 H (4726-9381) /uL Lymph # (Auto) 1500 (3016-2792) /uL [place] # (Auto) 600 (0-900) /uL Eos # (Auto) 100 (0-450) /uL Baso # (Auto) 100 (0-100) /uL PT 10.7 (9.4-12.5) SECONDS INR 0.9 (0.9-1.3) APTT 34 (25.1-36.5) SECONDS Sodium 138 (137-145) mmol/L Potassium 4.7 (3.4-5.1) mmol/L Chloride 114 H (98-107) mmol/L Carbon Dioxide 16 L (22-32) mmol/L BUN 25 H (9-20) mg/dL Creatinine 0.86 (0.66-1.25) mg/dL Estimated GFR > 60 (>60) mL/min BUN/Creatinine Ratio 29.1 H (6-22) Glucose 84 (70-99) mg/dL POC Whole Bld Glucose 74 (70-99) mg/dL Calcium 8.3 L (8.4-10.2) mg/dL Magnesium 2.5 H (1.6-2.3) mg/dL Total Bilirubin 0.9 (0.2-1.3) mg/dL AST 35 (17-59) IU/L ALT 36 (<50) IU/L Alkaline Phosphatase 115 (38-126) U/L Total Creatine Kinase 112 (55-170) U/L Troponin I < 0.012 < 0.012 (0.01-0.034) ng/mL NT-Pro-B Natriuret Pep 839 H (<125) pg/mL Total Protein 6.8 (6.3-8.2) g/dL Albumin 3.7 (3.5-5.0) g/dL Globulin 3.1 (1.7-4.1) g/dL Albumin/Globulin Ratio 1.2 (1.0-2.8) Lipase 353 H (23-300) U/L ECG Data Interpretation: EKG showed a normal sinus rhythm normal axis rate of 86 beats per minute normal VA intervals no STT wave changes. Previous EKG was normal as well. MDM Narrative Medical decision making narrative: 73-year-old male with sudden 2+ pitting edema. Patient fits a CHF picture with his labs. He is feeling much better after 20 mg IV Lasix. An echocardiogram was done for the patient here in the ED, but the patient was getting restless in waiting for the results. We will go ahead and discharge patient with 40 p.o. Lasix daily for the next 2 weeks and will follow up with new carton and can supply supervisor here Dr. Sanchez. Patient advised to come right back to ER for any shortness of breath or chest pain. Discharge Plan Departure Patient Disposition: Home Clinical Impression: Congestive heart failure (CHF) Qualifiers: Heart failure type: unspecified Heart failure chronicity: acute Qualified Code(s): I50.9 - Heart failure, unspecified Instructions: Congestive Heart Failure (Alternative Therapy) Activity Restrictions/Additional Instructions: Take medication as prescribed daily and follow up with carton and can supply supervisor as soon as possible. Echocardiogram will be read shortly and follow-up with results in the next day or 2. Come back to ER for any worsening shortness of breath or chest pain. Prescriptions: New furosemide 40 mg tablet 40 mg PO DAILY Qty: 14 0RF No Action ferrous sulfate 324 mg (65 mg iron) tablet,delayed release (DR/EC) 324 mg PO DAILY Qty: 90 3RF (DME) BD UF short 1/2 cc 31 g See Rx Instructions .Route .MEDSUPPLY Qty: 100 3RF Rx Instructions: Use to inject insulin twice daily SUBCUT; (DME) Lancets 0 .Route .MEDSUPPLY Qty: 200 6RF Rx Instructions: As directed (DME) BD Pen Needle Jerica U/F Misc 32g x 4mm Qty: 400 3RF Rx Instructions: For use w/Basaglar Insulin pen daily. (DME) Glucose: Test Strips 0 .Route .MEDSUPPLY Qty: 200 6RF Rx Instructions: As directed check blood sugar 4 times daily (DME) Blood Glucose Test Strip See Dose Instructions .ROUTE .MEDSUPPLY Qty: 200 2RF Dose Instruction: As directed Rx Instructions: up to four times a day as needed (DME) blood-glucose meter Misc See Rx Instructions .Route Qty: 1 0RF Rx Instructions: Use to check BS 4x a day or as directed by PCP (DME) FreeStyle Sadie 3 Sensor Device See Rx Instructions .ROUTE .COMPLEX Qty: 1 0RF Dose Instruction: As directed to be changed every 14 days Rx Instructions: As directed to be changed every 14 days amlodipine 10 mg tablet 10 mg PO DAILY Qty: 90 10RF Jardiance 10 mg tablet 10 mg PO DAILY Qty: 90 10RF losartan 100 mg tablet 100 mg PO DAILY Qty: 90 10RF atorvastatin 40 mg tablet 40 mg PO ONCE PM Qty: 90 10RF (DME) FreeStyle Sadie 2 Plus Sensor Device See Rx Instructions .ROUTE .COMPLEX Qty: 6 10RF Dose Instruction: USE FOR CONTINUOUS BLOOD GLUCOSE TESTING. CHANGE EVERY 15 DAYS *NEW PRESCRIPTION REQUEST* Rx Instructions: USE FOR CONTINUOUS BLOOD GLUCOSE TESTING. CHANGE EVERY 15 DAYS *NEW PRESCRIPTION REQUEST* insulin lispro [Humalog KwikPen Insulin] 100 unit/mL insulin pen 5 unit SUBCUT TID Qty: 15 3RF insulin glargine [Lantus Solostar U-100 Insulin] 100 unit/mL (3 mL) insulin pen 14 unit SUBCUT QPM MDD 14 Units Qty: 15 2RF Rx Instructions: Inject 14 Units daily at bedtime metformin 500 mg tablet 1,000 mg PO BID Qty: 360 1RF Referrals: Giovanni Sanchez MD [Physician, Cardiology] Francia Arizmendi MD [Primary Care Provider, Family Practice] Stand Alone Forms: Patient Portal/API
--- NOTE | 2024-10-26 13:23 | DI.ECHO.S_ITS ---
[facility]+ [facility] : : [address] : : [place] : : [id number] : : Phone: [phone] Echocardiogram Report + + :Name: CHAY NARAYAN Study Date: 10/26/2024 Height: 70 in : :Hospital ReadingLocation: Weight: 180 lb : : Gender: Male BSA: 2.0 m2 : :: 1950 Age: 73 yrs BP: 187/90 mmHg: :Reason For Study: SHORTNESS OF BREATH, SWELLING : :Ordering Physician: GIRMA NUNEZPerformed By: Melissa Vásquez : :Referring: GIRMA NUNEZ : + + Interpretation Summary The left ventricle is normal in size and wall thickness. Left ventricular systolic function is normal. The ejection fraction is estimated to be 60-65%. Septal motion is consistent with conduction abnormality. Grade I diastolic dysfunction with normal left atrial pressure. The right ventricle is normal in size and function. Pulmonary artery pressures cannot be estimated because of the lack of a measurable TR jet velocity but the IVC suggests a CVP of around 3 mmHg. The left atrial size is normal. A bicuspid aortic valve cannot be excluded. The aortic root is normal size. Procedure: A two-dimensional transthoracic echocardiogram with color flow and Doppler was performed. The study quality was technically adequate. There is no prior echocardiogram noted for this patient. The patient was in sinus rhythm with heart rates between 91-94 bpm during the exam. Left Ventricle: The left ventricle is normal in size and wall thickness. Left ventricular systolic function is normal. The ejection fraction is estimated to be 60-65%. Septal motion is consistent with conduction abnormality. Grade I diastolic dysfunction with normal left atrial pressure. Right Ventricle: The right ventricle is normal in size and function. Atria: The left atrial size is normal. Right atrial size is normal. There is no Doppler evidence for an interatrial shunt. Mitral Valve: The mitral papillary muscle appears thickened and/or calcified. There is mild mitral annular calcification. There is trace mitral regurgitation. Aortic Valve: A bicuspid aortic valve cannot be excluded. There is no aortic valve stenosis. Tricuspid Valve: The tricuspid valve leaflets are thin and pliable. No tricuspid regurgitation. Pulmonary artery pressures cannot be estimated because of the lack of a measurable TR jet velocity but the IVC suggests a CVP of around 3 mmHg. Pulmonic Valve: The pulmonic valve is not well visualized. There is no pulmonic valvular regurgitation. Great Vessels: The aortic root is normal size. The dimensions of the ascending aorta are normal. The IVC is of normal diameter and collapses greater than 50% with a sniff. This suggests a low right atrial pressure of 3 mm Hg. Pericardium/ Pleura There is no pericardial effusion. There is no pleural effusion. MMode/2D Measurements & Calculations LVIDd: 5.1 cm LVOT diam: 2.2 cm LVIDs: 3.5 cm Ao root diam: 3.4 cm FS: 31.0 % asc Aorta Diam: 3.2 cm IVSd: 0.94 cm Ao Arch Diam (Prox Trans): 3.0 cm LVPWd: 0.82 cm LV oliveira. diameter/BSA (cm/m^2): 2.6 LV sys. diameter/BSA (cm/m^2): 1.8 LA A2 area: 19.8 cm2 RA long axis: 5.0 cm LA A4 area: 15.6 cm2 RA area: 13.8 cm2 LA length (vol): 4.7 cm RA vol: 32.2 ml LA vol: 55.4 ml RA : 16.2 ml/m2 LA vol index: 27.8 ml/m2 IVC diam: 1.2 cm RVD1 (basal): 3.4 cm TAPSE: 2.6 cm Doppler Measurements & Calculations Ao V2 max: 135.9 cm/sec LVOT Max Brent: 83.1 cm/sec Ao V2 mean: 97.7 cm/sec LV V1 max P.8 mmHg Ao max P.4 mmHg LV V1 VTI: 17.0 cm Ao mean P.2 mmHg TAMMY(I,D): 2.5 cm2 Ao V2 VTI: 25.2 cm TAMMY(V,D): 2.3 cm2 sev ratio: 0.67 TAMMY indexed to BSA (cm^2/m^2): 1.3 MV E max brent: 75.0 cm/sec PA V2 max: 124.8 cm/sec MV A max brent: 120.7 cm/sec PA V2 mean: 86.4 cm/sec MV E/A: 0.62 PA mean P.3 mmHg Med Peak E' Brent: 6.2 cm/sec E/E' med: 12.1 Lat Peak E' Brent: 8.5 cm/sec E/E' lat: 8.8 E/e' average: 10.4 MV dec time: 0.17 sec MVA(VTI): 2.4 cm2 MV V2 mean: 72.5 cm/sec SV(LVOT): 63.1 ml MV mean P.6 mmHg MV V2 VTI: 26.2 cm Reading Physician:04:43 PM
[2024-10-26] MEDS: FUROSEMIDE 40 MG/4 ML VIAL 20 MG IV (13:24)
--- NOTE | 2024-10-26 13:29 | EKG_ITS ---
[address] [address] Test Date: 2024-10-26 Pat Name: Joon [facility] Department: Room: Gender: Male [employer]: ISSA : 1950 Requested By: Order Number: [id number] Reading MD: Chente Watson Measurements Intervals [place] Rate: 86 P: 59 TX: 154 QRS: 31 QRSD: 90 T: 45 QT: 364 QTc: 435 Interpretive Statements Normal sinus rhythm Electronically Signed On 11-06-2024 8:49:12 PDT by Chente Watson
[2024-10-26 14:24] LABS: Troponin I < 0.012 ng/mL (0.01-0.034)
== END 2024-10-26 17:12 | disposition home or self-care (01) ==
PROVIDERS: Emergency Provider Family Medicine; PCP Student in an Organized Health Care Education/Training Program
DX: I11.0 Hypertensive heart disease with heart failure (principal); I50.9 Heart failure, unspecified; Z87.891 Personal history of nicotine dependence
CPT/HCPCS: 36415; 71045; 80053; 82550; 82962; 83690; 83735; 83880; 84484; 85025; 85610; 85730; 93005; 93306; 96374; 99284; J1938

== ENCOUNTER 2024-10-31 07:00 | Emergency (ER) | payer MEDICARE, SELFPAY ==
[2024-10-31] VITALS (12 sets, daily range): BP systolic 160–198; BP diastolic 81–90; PULSE 73–98; RESP 16; TEMP 36.9; O2SAT 92–98; BMI 25.8
--- NOTE | 2024-10-31 07:51 | ED.GENADULT ---
HPI - General Adult General Chief complaint: Eye Problems Stated complaint: On water pill; High BP; both eyes irritated Time Seen by Provider: 10/31/24 07:23 Mode of arrival: Ambulatory History of Present Illness HPI narrative: 73-year-old male who was seen by myself approximately a week ago for some sudden lower extremity edema. I started him on some Lasix and advised to follow up with the picker and sorter load and unload after getting echocardiogram done for him. The echocardiogram showed a normal EF at 60-65% with a grade 1 diastolic dysfunction. Currently the patient is still having some shortness of breath and the lower extremity edema has not improved. Patient denies any other symptoms. Other review of systems all negative. Related Data Previous Rx's ?Medication ?Instructions ?Recorded BD UF short / cc 31 g #100 ea 04/23/19 Lancets #200 ea 05/15/19 BD Pen Needle Jerica U/F Misc #400 ea 09/25/21 Glucose: Test Strips #200 ea 09/25/21 blood sugar diagnostic (Blood #200 ea 02/08/23 Glucose Test strips) blood-glucose meter #1 ea 02/08/23 blood-glucose sensor (FreeStyle #1 ea 02/20/24 Sadie 3 Sensor device) ferrous sulfate 324 mg (65 mg 324 mg PO DAILY #90 tabs 03/31/24 iron) tablet,delayed release amlodipine 10 mg tablet 10 mg PO DAILY #90 tabs 07/02/24 atorvastatin 40 mg tablet 40 mg PO ONCE PM #90 tabs 07/02/24 blood-glucose sensor (FreeStyle #6 ea 07/02/24 Sadie 2 Plus Sensor device) empagliflozin 10 mg tablet 10 mg PO DAILY #90 tabs 07/02/24 (Jardiance) losartan 100 mg tablet 100 mg PO DAILY #90 tabs 07/02/24 Lantus Solostar U-100 Insulin 100 14 unit (0.14 mL) SUBCUT QPM 08/04/24 unit/mL (3 mL) subcutaneous pen Diabetes #15 mL (insulin glargine) insulin lispro 100 unit/mL 5 unit (0.05 mL) SUBCUT TID #15 mL 08/04/24 subcutaneous pen (Humalog KwikPen (U-100) Insulin) furosemide 40 mg tablet 40 mg PO DAILY #14 tabs 10/26/24 metformin 500 mg tablet 1,000 mg (2 x 500 mg) PO BID #360 10/30/24 tabs furosemide 40 mg tablet 40 mg PO DAILY #10 tabs 10/31/24 Allergies Allergy/AdvReac Type Severity Reaction Status Date / Time chlorthalidone AdvReac Mild weakness Verified 10/26/24 11:11 Review of Systems Review of Systems ROS Unobtainable: All systems reviewed & are unremarkable except as noted in HPI and below Patient History Medical History (Updated 10/31/24 @ 11:27 by Everett Nolasco MD) Cervical spondylosis Abnormal finding on imaging Type 2 diabetes mellitus Mixed hyperlipidemia due to type 2 diabetes mellitus Benign essential hypertension Myasthenia gravis (1976) Surgical History Anesthesia 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 Social History household members: spouse alcohol intake: current (one night a week 4 beers) substance use type: marijuana eating out: rarely or never Type(s) of exercise: walking, advised to exercise at least 150 min/week (moderate intensity aerobic) and additional Exam Narrative Exam Narrative: General: Healthy appearing, in no acute distress. Able to give a complete and coherent history. Well-nourished well-developed HEENT: Moist mucous membranes, normal sclera with reactive pupils,, left eye conjunctive slightly red as well as slight edema of eyelids Neck: No JVD, supple Respiratory: Lungs are clear to auscultation, no wheezing no rales no rhonchi. Full and symmetrical air movement Cardiac: Regular rate and rhythm no murmurs no bruits Abdomen: Soft, nontender, no rebound or guarding, no flank pain Skin: Warm and dry, no rashes Neurologic: Grossly neurologically intact with no obvious asymmetries or abnormalities Extremities: No trauma, 1-2+ edema bilateral in lower ext. Psych: Cooperative, appropriate insight and affect Initial Vital Signs Initial Vital Signs: Vital Signs Pulse Rate 90 10/31/24 07:13 Blood Pressure 198/86 H 10/31/24 07:13 Pulse Oximetry 92 10/31/24 07:13 Course Course Course Narrative: Patient still has a CHF picture even go he was put on Lasix p.o. and the last visit. His recent echo showed a grade 1 diastolic dysfunction. We will try another 40 mg IV Lasix now. Orders Ordered: ED Orders 10/31/24 07:58 XR chest 2V Stat 10/31/24 08:53 BMP [Basic Metabolic Panel] Stat BNP [NT-proBNP (BNP-Adult 18+)] Stat Discontinued Medications Furosemide (Furosemide 40 Mg/4 Ml Vial) 20 mg IV NOW ONE Stop: 10/31/24 09:57 Last Admin: 10/31/24 10:12 Dose: Not Given Documented By: CTS Furosemide (Furosemide 40 Mg/4 Ml Vial) 40 mg IV NOW ONE Stop: 10/31/24 10:02 Last Admin: 10/31/24 10:21 Dose: 40 mg Documented By: CTS Metoprolol Tartrate (Metoprolol Tartrate 5 Mg/5 Ml Inj) 5 mg IV NOW ONE Stop: 10/31/24 07:58 Last Admin: 10/31/24 09:01 Dose: 5 mg Documented By: CTS Polymyxin/Trimethoprim Sulfate (Polymyxin B Sulf/Trimeth Ophth 10 Ml) 2 drops EYE-LEFT NOW ONE Stop: 10/31/24 09:03 Last Admin: 10/31/24 09:07 Dose: 2 drop Documented By: CTS Reevaluation(s) Reevaluation #1: Upon re-evaluation, the patient is still having some slight shortness of breath and his edema has unchanged. We will do a trial of Lasix 40 mg IV x1 Vital Signs Vital signs: Vital Signs - 8 hr 10/31/24 07:13 10/31/24 07:13 10/31/24 07:19 Temperature 98.4 F Pulse Rate 90 98 H Respiratory Rate 16 Blood Pressure 198/86 H 198/86 H Pulse Oximetry 92 95 Oxygen Delivery Method Room Air 10/31/24 07:30 10/31/24 08:00 10/31/24 08:30 Temperature Pulse Rate 90 87 86 Respiratory Rate Blood Pressure Pulse Oximetry 96 97 95 Oxygen Delivery Method 10/31/24 09:00 10/31/24 09:30 10/31/24 09:56 Temperature Pulse Rate 81 73 77 Respiratory Rate Blood Pressure Pulse Oximetry 95 94 96 Oxygen Delivery Method 10/31/24 09:56 10/31/24 10:00 10/31/24 10:19 Temperature Pulse Rate 78 81 Respiratory Rate Blood Pressure 163/82 H Pulse Oximetry 95 97 Oxygen Delivery Method 10/31/24 10:19 Temperature Pulse Rate Respiratory Rate Blood Pressure 173/81 H Pulse Oximetry Oxygen Delivery Method Medical Decision Making Differential Diagnosis Differential Diagnosis: chf exacerbation vs pulmonary embous vs acute coronary syndrome Lab Data 10/31/24 08:53 Labs: Lab Results 10/31/24 Range/Units 08:53 Sodium 136 L (137-145) mmol/L Potassium 5.3 H (3.4-5.1) mmol/L Chloride 113 H (98-107) mmol/L Carbon Dioxide 18 L (22-32) mmol/L BUN 24 H (9-20) mg/dL Creatinine 0.96 (0.66-1.25) mg/dL Estimated GFR > 60 (>60) mL/min BUN/Creatinine Ratio 25.0 H (6-22) Glucose 101 H (70-99) mg/dL Calcium 7.9 L (8.4-10.2) mg/dL NT-Pro-B Natriuret Pep 891 H (<125) pg/mL Imaging Data Chest x-ray: Radiologist's Impression: Mild pulmonary vascular congestion with small right pleural effusion and right basilar small infiltrate/atelectasis. Left lung is clear. No pneumothorax. MDM Narrative Medical decision making narrative: Patient felt better after Lasix 40 mg IV x1. Advised that the patient has stage I diastolic dysfunction in most likely is the source of his sudden edema. Advised to continue with the Lasix 40 mg p.o. daily which will also help his slight hyperkalemia. Can double up the dose on days where he has more edema or shortness of breath. Discharge Plan Departure Patient Disposition: Home Clinical Impression: Congestive heart failure (CHF) Qualifiers: Heart failure type: unspecified Heart failure chronicity: acute Qualified Code(s): I50.9 - Heart failure, unspecified Conjunctivitis Qualifiers: Conjunctivitis type: acute Acute conjunctivitis type: unspecified Laterality: left Qualified Code(s): H10.32 - Unspecified acute conjunctivitis, left eye Instructions: DI for Heart Failure Activity Restrictions/Additional Instructions: Use the Polytrim drops every 3 hours to the affected eye for 1 week. Do not use more than 6 drops in a day. Continue with the furosemide 40 mg daily. Can go ahead and take another dose later in the day when having more swelling or shortness of breath. Follow up with the picker and sorter load and unload as planned. Come back to ER if having more shortness of breath even with the medication. Prescriptions: New furosemide 40 mg tablet 40 mg PO DAILY Qty: 10 0RF No Action ferrous sulfate 324 mg (65 mg iron) tablet,delayed release (DR/EC) 324 mg PO DAILY Qty: 90 3RF (DME) BD UF short 1/2 cc 31 g See Rx Instructions .Route .MEDSUPPLY Qty: 100 3RF Rx Instructions: Use to inject insulin twice daily SUBCUT; (DME) Lancets 0 .Route .MEDSUPPLY Qty: 200 6RF Rx Instructions: As directed (DME) BD Pen Needle Jerica U/F Misc 32g x 4mm Qty: 400 3RF Rx Instructions: For use w/Basaglar Insulin pen daily. (DME) Glucose: Test Strips 0 .Route .MEDSUPPLY Qty: 200 6RF Rx Instructions: As directed check blood sugar 4 times daily (DME) Blood Glucose Test Strip See Dose Instructions .ROUTE .MEDSUPPLY Qty: 200 2RF Dose Instruction: As directed Rx Instructions: up to four times a day as needed (DME) blood-glucose meter Misc See Rx Instructions .Route Qty: 1 0RF Rx Instructions: Use to check BS 4x a day or as directed by PCP (DME) FreeStyle Sadie 3 Sensor Device See Rx Instructions .ROUTE .COMPLEX Qty: 1 0RF Dose Instruction: As directed to be changed every 14 days Rx Instructions: As directed to be changed every 14 days amlodipine 10 mg tablet 10 mg PO DAILY Qty: 90 10RF Jardiance 10 mg tablet 10 mg PO DAILY Qty: 90 10RF losartan 100 mg tablet 100 mg PO DAILY Qty: 90 10RF atorvastatin 40 mg tablet 40 mg PO ONCE PM Qty: 90 10RF (DME) FreeStyle Sadie 2 Plus Sensor Device See Rx Instructions .ROUTE .COMPLEX Qty: 6 10RF Dose Instruction: USE FOR CONTINUOUS BLOOD GLUCOSE TESTING. CHANGE EVERY 15 DAYS *NEW PRESCRIPTION REQUEST* Rx Instructions: USE FOR CONTINUOUS BLOOD GLUCOSE TESTING. CHANGE EVERY 15 DAYS *NEW PRESCRIPTION REQUEST* insulin lispro [Humalog KwikPen Insulin] 100 unit/mL insulin pen 5 unit SUBCUT TID Qty: 15 3RF insulin glargine [Lantus Solostar U-100 Insulin] 100 unit/mL (3 mL) insulin pen 14 unit SUBCUT QPM MDD 14 Units Qty: 15 2RF Rx Instructions: Inject 14 Units daily at bedtime metformin 500 mg tablet 1,000 mg PO BID Qty: 360 11RF furosemide 40 mg tablet 40 mg PO DAILY Qty: 14 0RF Referrals: Francia Arizmendi MD [Primary Care Provider, Family Practice] Stand Alone Forms: Patient Portal/API
--- NOTE | 2024-10-31 07:58 | DI.RAD.S_ITS ---
PROCEDURE: XR CHEST 2V INDICATIONS: sob TECHNIQUE: 2 views of the chest were acquired. COMPARISON: [facility], CR, XR CHEST 1V, 10/26/2024, 11:16. FINDINGS: Surgical changes and devices: None. Lungs and pleura: Small right pleural effusion and right basilar infiltrate/atelectasis. Left lung is clear. Mild pulmonary vascular congestion is seen. Mediastinum: Mediastinal contours are normal. Heart size is normal. Bones and chest wall: No suspicious bony abnormalities. Soft tissues appear unremarkable. IMPRESSION: Mild pulmonary vascular congestion with small right pleural effusion and right basilar small infiltrate/atelectasis. Left lung is clear. No pneumothorax. Dictated by: Pj Godfrey M.D. on 10/31/2024 at 9:01 Approved by: Pj Godfrey M.D. on 10/31/2024 at 9:01
[2024-10-31] MEDS: METOPROLOL TARTRATE 5 MG/5 ML INJ IV (09:01)
[2024-10-31] MEDS: POLYMYXIN B SULF/TRIMETH OPHTH 10 ML 2 DROPS EYE-LEFT (09:07)
[2024-10-31 09:15] LABS: Blood Urea Nitrogen 24 mg/dL (9-20); Calcium 7.9 mg/dL (8.4-10.2); Carbon Dioxide 18 mmol/L (22-32); Chloride 113 mmol/L (98-107); Estimated Glomerular Filt Rate > 60 mL/min (>60); Glucose 101 mg/dL (70-99); HEMOLYSIS < 15 (0-50); Potassium 5.3 mmol/L (3.4-5.1); Sodium 136 mmol/L (137-145)
[2024-10-31 09:25] LABS: NT-proBNP (BNP-Adult 18+) 891 pg/mL (<125)
--- NOTE | 2024-10-31 09:40 | PC.NURSE ---
Post metoprolol, glucose dropped to 69. pt's glucose monitor alarming. given OJ and some cheese. asymptomatic. MD aware. no new orders.
[2024-10-31] MEDS: FUROSEMIDE 40 MG/4 ML VIAL IV (10:21)
--- NOTE | 2024-10-31 10:23 | INF.NOTE ---
glucose improved to 90 and trending up per pt's CGM. remains asymptomatic.
== END 2024-10-31 11:38 | disposition home or self-care (01) ==
PROVIDERS: Emergency Provider Family Medicine; PCP Student in an Organized Health Care Education/Training Program
DX: I50.9 Heart failure, unspecified (principal); H10.32 Unspecified acute conjunctivitis, left eye; Z79.01 Long term (current) use of anticoagulants
CPT/HCPCS: 36415; 71046; 80048; 83880; 96374; 96375; 99284; J1938